=== PATIENT | female | born 1990 | race Caucasian/White ===

== ENCOUNTER 2017-03-14 15:27 | Outpatient (CLI) | payer MEDICAID, OTHER ==
[~2017-03-14] VITALS: Ht 170.2 cm; Wt 94.3 kg
[~2017-03-14 15:27] MED LIST: FERR27TA PO; IBUP800T25 PO; PREN1TAB49 PO
[2017-03-14 16:05] VITALS: BP 114/57; PULSE 117; RESP 20; Ht 170.2 cm; Wt 94.3 kg
[2017-03-14 16:17] LABS: ADD UMIC YES; UR BILIRUBIN (Dip) NEGATIVE (NEGATIVE); UR BLOOD (Dip) TRACE (NEGATIVE); UR CLARITY CLEAR (CLEAR); UR COLOR LT. YELLOW (YELLOW); UR GLUCOSE (Dip) NEGATIVE (NEGATIVE); UR KETONES (Dip) NEGATIVE (NEGATIVE); UR LEUKOCYTE ESTERASE (Dip) NEGATIVE (NEGATIVE); UR NITRITE (Dip) NEGATIVE (NEGATIVE); UR TOTAL PROTEIN (Dip) NEGATIVE (NEGATIVE); UR UROBILINOGEN (Dip) 2.0 E.U./dL (0.1-1.0)
[2017-03-14 16:26] LABS: UR SQUAMOUS EPITHELIAL CELL FEW; URINE RBCS 0-2 /HPF (0)
[2017-03-14] MEDS: TERBUTALINE 1 MG/ML INJ SC ONE ×2 (16:53→18:09)
--- NOTE | 2017-03-14 16:53 | RADRPT ---
PROCEDURE: Obstetrical ultrasound CLINICAL INDICATION: Labor TECHNIQUE: Multiple sonographic images of the pelvis were obtained. The images were reviewed on a PACS workstation. COMPARISON: Obstetrical ultrasound from 03/19/2016 FINDINGS: The cervix is not well visualized. There is a single viable intrauterine gestation. Cardiac activity is present with 141 beats per minute. There is a breech presentation. The placenta is posterior and fundal in location. There is no evidence for an abruption or placenta previa. There is a subjectively normal amount of amniotic fluid. Measurements were made in order to determine age. The results are as follows (cm): BPD =6.59 HC =24.93 AC =22.55 FL =4.83 Estimated gestational age by ultrasound of approximately 26 weeks, 5 days. The estimated date of delivery by ultrasound is 06/15/2017. Estimated gestational age by LMP of approximately 26 weeks, 6 days. The estimated date of delivery by LMP is 06/14/2017. EFW = 969 grams (30th percentile) IMPRESSION: Single viable intrauterine gestation of approximately 26 weeks, 5 days . The estimated date of delivery is 06/15/2017 . Dating by ultrasound is within 1 day of dating by LMP. Breech presentation. Estimated weight is in the 30th percentile. RPTAT: EE Physician Abi Date Time Electronically viewed and signed by Physician Abi on 03/14/2017 16:52 /
[2017-03-14] MEDS: LACTATED RINGER'S 1,000 ML IV SCH ×2 (16:54→18:10)
--- NOTE | 2017-03-14 16:56 | RADRPT ---
PROCEDURE: US OB biophysical profile. CLINICAL INDICATION: evaluation, fever, contractions TECHNIQUE: Multiple sonographic images of the pelvis were obtained. The images were reviewed on a PACS workstation. COMPARISON: None FINDINGS: The cervix is closed and measures 4.5 cm in length. There is a single viable intrauterine gestation. Cardiac activity is present with 152 beats per min sycuan. There is a breech presentation. The placenta is posterior and fundal. There is no evidence of placental abruption. There is a normal amount of amniotic fluid with an GUSTAVO = 10.5 cm. Biophysical profile: movement 2/2 tone 2/2. breathing 2/2 GUSTAVO 2/2 Total 05/07 RPTAT: AA . IMPRESSION: Normal biophysical profile. Normal GUSTAVO of 10.5 cm. The cervix is closed and measures 4.5 cm in length. Physician Abi Date Time Electronically viewed and signed by Physician Abi on 03/14/2017 16:55 /
[2017-03-14] MEDS ORDERED: CALC600T11 PO (17:07)
[2017-03-14] MEDS ORDERED: FOLI0.8C PO (17:08)
[2017-03-14 17:09] LABS: ADD SCAN DIFF NO
[2017-03-14 17:12] LABS: BASOPHILS % 0.2 % (0.0-2.0); HEMATOCRIT 36.3 % (37.0-47.0); HEMOGLOBIN 12.5 g/dl (12.0-16.0); LYMPHOCYTES # 0.9 10^3/ul (0.8-2.9); LYMPHOCYTES % 7.9 % (15.0-51.0); MEAN CORPUSCULAR HEMOGLOBIN 30.8 pg (29.0-33.0); MEAN CORPUSCULAR HGB CONC 34.4 g/dl (32.0-37.0); MEAN CORPUSCULAR VOLUME 89.4 fl (82.0-101.0); MEAN PLATELET VOLUME 11.3 fl (7.4-10.4); MONOCYTE # 0.7 10^3/ul (0.3-0.9); MONOCYTES % 6.7 % (0.0-11.0); NEUTROPHIL # 9.3 10^3/ul (1.6-7.5); NEUTROPHILS % 84.3 % (39.0-77.0); PLATELET COUNT 186 10^3/UL (140-415); RED BLOOD COUNT 4.06 10^6/ul (4.20-5.40); RED CELL DISTRIBUTION WIDTH 13.7 % (11.5-14.5)
--- NOTE | 2017-03-14 18:24 | PN ---
Triage Information Date/Time Weeks of Gestation 4 para 3 at 26+6 weeks of gestation who presents with contractions and flulike symptoms including cough Patient reports having fever at home although afebrile while here : 4 Para: 3 Diabetes: none Hypertention: none Objective Vital Signs Date Time Temp Pulse Resp B/P Pulse Ox O2 Delivery O2 Flow Rate FiO2 03/14/17 16:05 98.4 117 20 114/57 97 Room Air Heart Rate: 140's Heart Rate Comments Reactive Contractions: None Results/Medications Result Diagram: 03/14/17 1650 Results 24 hrs Laboratory Tests Test 03/14/17 16:00 03/14/17 16:50 Urine Color LT. YELLOW Urine Clarity CLEAR Urine pH 7.0 Urine Specific [place] <=1.005 L Urine Ketones NEGATIVE Urine Nitrite NEGATIVE Urine Bilirubin NEGATIVE Urine Urobilinogen 2.0 E.U./dL H Urine Leukocyte Esterase NEGATIVE Urine Microscopic RBC 0-2 Urine Microscopic WBC 0-2 Urine Squamous Epithelial Cells FEW Urine Hemoglobin TRACE Urine Glucose NEGATIVE Urine Total Protein NEGATIVE Fibronectin NEGATIVE White Blood Count 11.0 #H Red Blood Count 4.06 L Hemoglobin 12.5 Hematocrit 36.3 L Mean Corpuscular Volume 89.4 Mean Corpuscular Hemoglobin 30.8 Mean Corpuscular Hemoglobin Concent 34.4 Red Cell Distribution Width 13.7 Platelet Count 186 Mean Platelet Volume 11.3 H Neutrophils % 84.3 H Lymphocytes % 7.9 L Monocytes % 6.7 Eosinophils % 0.0 Basophils % 0.2 Nucleated Red Blood Cells % 0.0 Neutrophils # 9.3 H Lymphocytes # 0.9 Monocytes # 0.7 Eosinophils # 0.0 Basophils # 0.0 Nucleated Red Blood Cells # 0.0 Medications Current Medications Lactated Ringer's (Lr) 1,000 ml @ 125 mls/hr Q8H IV Last administered on t 18:10; Admin Dose 125 MLS/HR; Start 03/14/17 at 16:01 Imaging Results PROCEDURE: US OB biophysical profile. CLINICAL INDICATION: evaluation, fever, contractions TECHNIQUE: Multiple sonographic images of the pelvis were obtained. The images were reviewed on a PACS workstation. COMPARISON: None FINDINGS: The cervix is closed and measures 4.5 cm in length. There is a single viable intrauterine gestation. Cardiac activity is present with 152 beats per minute. There is a breech presentation. The placenta is posterior and fundal. There is no evidence of placental abruption. There is a normal amount of amniotic fluid with an GUSTAVO = 10.5 cm. Biophysical profile: movement 2/2 tone 2/2. breathing 2/2 GUSTAVO 2/2 Total 05/07 RPTAT: AA . IMPRESSION: Normal biophysical profile. Normal GUSTAVO of 10.5 cm. The cervix is closed and measures 4.5 cm in length. Tony Estevez Physician Date Time Electronically viewed and signed by Tony Estevez Physician on 03/14/2017 16:55 RA/ CC: NOAM HUGHES MD PROCEDURE: Obstetrical ultrasound CLINICAL INDICATION: Labor TECHNIQUE: Multiple sonographic images of the pelvis were obtained. The images were reviewed on a PACS workstation. COMPARISON: Obstetrical ultrasound from 03/19/2016 FINDINGS: The cervix is not well visualized. There is a single viable intrauterine gestation. Cardiac activity is present with 141 beats per minute. There is a breech presentation. The placenta is posterior and fundal in location. There is no evidence for an abruption or placenta previa. There is a subjectively normal amount of amniotic fluid. Measurements were made in order to determine age. The results are as follows (cm): BPD = 6.59 HC = 24.93 AC = 22.55 FL = 4.83 Estimated gestational age by ultrasound of approximately 26 weeks, 5 days. The estimated date of delivery by ultrasound is 06/15/2017. Estimated gestational age by LMP of approximately 26 weeks, 6 days. The estimated date of delivery by LMP is 06/14/2017. EFW = 969 grams (30th percentile) IMPRESSION: Single viable intrauterine gestation of approximately 26 weeks, 5 days . The estimated date of delivery is 06/15/2017 . Dating by ultrasound is within 1 day of dating by LMP. Breech presentation. Estimated weight is in the 30th percentile. 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
--- NOTE | 2017-03-14 21:10 | PN ---
Triage Information Date/Time 03/14/2040 Weeks of Gestation 26w6d : 4 Para: 3 Diabetes: none Additional information c/o uterine contractions q 10min, fever but never took temp , dry cough with general bodyache for 2days Objective EFM no significant uterine activities max temp 99.3 but maternal tachycardia with transient tahycardia 170's down to 160's WBC 11578 CVL 4.5 EFW 969gm breech U/A neg FFNneg CVA neg for tenderness Vital Signs Date Time Temp Pulse Resp B/P Pulse Ox O2 Delivery O2 Flow Rate FiO2 03/14/17 16:05 98.4 117 20 114/57 97 Room Air Heart Rate Comments 160's Exam earier show some u.c terbutaline x1 given resolved Results/Medications Result Diagram: 03/14/17 1650 Results 24 hrs Laboratory Tests Test 03/14/17 16:00 03/14/17 16:50 Urine Color LT. YELLOW Urine Clarity CLEAR Urine pH 7.0 Urine Specific [place] <=1.005 L Urine Ketones NEGATIVE Urine Nitrite NEGATIVE Urine Bilirubin NEGATIVE Urine Urobilinogen 2.0 E.U./dL H Urine Leukocyte Esterase NEGATIVE Urine Microscopic RBC 0-2 Urine Microscopic WBC 0-2 Urine Squamous Epithelial Cells FEW Urine Hemoglobin TRACE Urine Glucose NEGATIVE Urine Total Protein NEGATIVE Fibronectin NEGATIVE White Blood Count 11.0 #H Red Blood Count 4.06 L Hemoglobin 12.5 Hematocrit 36.3 L Mean Corpuscular Volume 89.4 Mean Corpuscular Hemoglobin 30.8 Mean Corpuscular Hemoglobin Concent 34.4 Red Cell Distribution Width 13.7 Platelet Count 186 Mean Platelet Volume 11.3 H Neutrophils % 84.3 H Lymphocytes % 7.9 L Monocytes % 6.7 Eosinophils % 0.0 Basophils % 0.2 Nucleated Red Blood Cells % 0.0 Neutrophils # 9.3 H Lymphocytes # 0.9 Monocytes # 0.7 Eosinophils # 0.0 Basophils # 0.0 Nucleated Red Blood Cells # 0.0 Medications Current Medications Lactated Ringer's (Lr) 1,000 ml @ 125 mls/hr Q8H IV Last administered on t 18:10; Admin Dose 125 MLS/HR; Start 03/14/17 at 16:01 Assessment/Plan cannot exclude flu syndrome to ER for evaluation and management SHANNAN CHEN MD Mar 14, 2017 21:05
--- NOTE | 2017-03-14 22:00 | TRIAGE ---
OB Triage Datetime Report Generated by CPN: 03/14/2017 22:00 Datetime: 03/14/2017 20:38 Stage of : OB Triage Labor Evaluation Frequency: 0 Monitor Mode: External Resting Tone [place]: Relaxed Heart Rate FHR Baseline Rate: 160 Monitor Mode: External US Variability: Moderate 6-25 bpm Accelerations: 15X15 Decelerations: None Category: Category I Pain Assessment Pain Scale: 4 Pain Presence: Intermittent Pain Type: Cramping Pain Location: Back Pain Goal: 2 Pain Relief Measures: Comfort Measures Datetime: 03/14/2017 20:00 Stage of : OB Triage Temperature Route: Oral Labor Evaluation Frequency: OCCASS Monitor Mode: External Duration (sec)2399: 30-50 Quality: Mild Pattern: Normal: <= 5 Contractions in 10 Minutes Resting Tone [place]: Relaxed Heart Rate FHR Baseline Rate: 170 Monitor Mode: External US FHR Baseline Changes: Tachycardia Variability: Moderate 6-25 bpm Accelerations: 15X15 Decelerations: None Pain Assessment Pain Scale: 4 Pain Presence: Intermittent Pain Type: Cramping Pain Location: Back Pain Goal: 2 Pain Relief Measures: Comfort Measures Datetime: 03/14/2017 19:02 Labor Evaluation Frequency: x2 Monitor Mode: External Duration (sec)2399: 30-50 Quality: Mild Pattern: Normal: <= 5 Contractions in 10 Minutes Resting Tone [place]: Relaxed Pain Assessment Pain Scale: 4 Pain Presence: Intermittent Pain Type: Cramping Pain Location: Back Pain Goal: 2 Pain Relief Measures: Comfort Measures Pain Assessment Comments: pt reports uc's are the same Datetime: 03/14/2017 18:10 Labor Evaluation Frequency: X3 Monitor Mode: External Duration (sec)2399: 40-60 Quality: Mild Pattern: Normal: <= 5 Contractions in 10 Minutes Resting Tone [place]: Relaxed Datetime: 03/14/2017 17:21 Comments: u/s taken off to accurately monitor contractions Datetime: 03/14/2017 16:53 Labor Evaluation Frequency: X1 Monitor Mode: External Duration (sec)2399: 40 Quality: Mild Pattern: Normal: <= 5 Contractions in 10 Minutes Resting Tone [place]: Relaxed Contraction Comments: PT REPORTS DECREASED UC'S Heart Rate FHR Baseline Rate: 145 Monitor Mode: External US Variability: Moderate 6-25 bpm Accelerations: 10X10 Decelerations: None Category: Category I Datetime: 03/14/2017 16:52 Comments: NST REACTIVE FOR GESTATIONAL AGE Datetime: 03/14/2017 15:39 Stage of : OB Triage Maternal Assessment Level of Consciousness: Fully Conscious DTR's/Clonus: DTRs 2+; No Clonus Headache: Denies Blurred Vision: No Respiratory Effort: Unlabored; Regular Rhythm; Equal Expansion Breath Sounds, Left: Clear and Equal Breath Sounds, Right: Clear and Equal Nausea/Vomiting: Denies RUQ Epigastric Pain: Denies Lower Extremities Edema: None Degree: None Upper Extremities Edema: None Degree: None Facial Edema: None Temperature Route: Axillary Fall Risk Assessment History of Falling: (0) No Secondary Diagnosis: (0) No Ambulatory Aid: (0) Bedrest/Nurse Assist IV Therapy: (0) No Gait: (0) Normal/Bedrest/Immobile Mental Status: (0) Oriented to Own Ability Fall Score: 0 Fall Risk Score Definition: No Risk: No action required Datetime: 03/14/2017 15:38 EGA: 26.6 Datetime: 03/14/2017 15:37 Time of Arrival: 03/14/2017 15:20 Arrived By: Ambulatory Arrived From: Home Chief Complaint: fever/ uc's Movement: Present Contractions: Irregular Time Contractions Began: 03/13/2017 06:00 Contractions: q10min per pt Rupture of Membranes: Denies Vaginal Bleeding: None Vaginal Discharge: Denies Recent Sexual Intercouse: Denies Abdominal Trauma: Not Applicable Patient Complaints: Headache; Fever Additional Patient Complaints: BEY upon standing and when cough Time Provider Notified: 03/14/2017 16:00 Provider Notified: DANA Initial Plan: [email or web address] call
[2017-03-14] MEDS ORDERED: ACET325T33 PO (23:05)
[2017-03-14] MEDS ORDERED: GUAI-637 PO (23:06)
== END 2017-03-14 21:00 | disposition home or self-care (01) ==
LOC: OBT 15:27 → L-D 15:28 → OBT 21:00
PROVIDERS: ATTEND Obstetrics & Gynecology
DX: O62.9 Abnormality of forces of labor, unspecified (principal); O26.892 Other specified pregnancy related conditions, second trimester; R52 Pain, unspecified; Z3A.26 26 weeks gestation of pregnancy
CPT/HCPCS: 36415; 76815; 76817; 76818; 81001; 82731; 85025; 96360; 96361; 96372; J3105; J7120; Z7500; G0463

== ENCOUNTER 2017-03-14 21:05 | Emergency (ER) | payer OTHER ==
[~2017-03-14] VITALS: Ht 162.6 cm; Wt 95.5 kg
[~2017-03-14 21:05] MED LIST changes: +CALC600T11 PO; +FOLI0.8C PO
[2017-03-14 21:11] VITALS: Ht 162.6 cm; Wt 95.5 kg
--- NOTE | 2017-03-14 22:40 | PN ---
Triage Information Date/Time 03/14/17 Weeks of Gestation 26w6d : 5 Para: 3 Diabetes: none Hypertention: none Additional information c/o uc's q10min fever and nonproductive cough and generalbodyache for thew last 2days didn't take temperature headahe Objective tarchycardic 120's maternal max temp 99.3 WBC 67617 tachycardia transient 170's down to 160"s u/a neg EFM no uterine activities at present but earier detected and resolved after x1 terbutaline FNN neg Vital Signs Date Time Temp Pulse Resp B/P Pulse Ox O2 Delivery O2 Flow Rate FiO2 03/14/17 21:11 100.9 126 18 118/62 98 Contractions: None Exam CVA neg for tenderness Results/Medications Imaging Results cvl 4.5 GUSTAVO 10.5 EFW 969gm breech Assessment/Plan IUP 26w6d cannot exclude flu syndrome to ER for futher evaluation and management SHANNAN CHEN MD Mar 14, 2017 22:35
--- NOTE | 2017-03-14 23:03 | ERD ---
ER Documentation Chief Complaint Date/Time DATE: 03/14/17 TIME: 22:56 Chief Complaint fever, 26 weeks ,cleared by OB HPI This 26-year-old female presents to emergency department for complaints of fever , nonproductive cough and body aches and headache. She reports that she is able to tolerate fluids but has decreased appetite, date symptoms started yesterday. Denies dysuria, diarrhea, vomiting, or shortness of breath.. Patient has not taken her temperature at home, has not tried [id number] Tylenol. Reports she is having contractions. Patient is 27 weeks tomorrow. She was cleared from OB, chart reviewed documents that she is 26 weeks 6 day, 5, para 3. Objective data tachycardia 120s maternal max temperature 99.3 WBCs 62824, tachycardia transient 107 days down to 160 UA negative, EFM no uterine activity at present but earlier detected and resolved after 1 terbutaline, FNN negative ROS All systems reviewed and are negative except as per history of present illness. Medications Home Meds Active Scripts Guaifenesin* (Robitussin*) 100 Mg/5 Ml Syrup, 200 MG PO Q4H Y for COUGH for 7 Days, #120 ML Prov:ROGELIO,KIRSTEN 03/14/17 Acetaminophen* (Tylenol*) 325 Mg Tablet, 2 TAB PO Q6 Y for PAIN AND OR ELEVATED TEMP, #20 TAB Prov:ROGELIO,KIRSTEN 03/14/17 Reported Medications Folic Acid (Folic Acid) 0.8 Mg Capsule, 0.8 MG PO, CAP 03/14/17 Calcium Carbonate* (Calcium Carbonate*) 600 MG Ca Tab, 600 MG PO, TAB 03/14/17 Vits W-Ca,Fe,Fa(<1MG) () 1 Tab Tablet, 1 TAB PO DAILY 04/11/12 Ferrous Sulfate (Iron) 1 Tab Tablet, 1 TAB PO DAILY 04/11/12 Discontinued Scripts Ibuprofen* (Ibuprofen*) 800 Mg Tablet, 800 MG PO Q6, #20 TAB 0 Refills Prov:NOAM HUGHES MD 03/29/16 Allergies Allergies: Coded Allergies: No Known Allergies (Verified Allergy, Unknown, 03/14/17) PMhx/Soc History of Surgery: No Anesthesia Reaction: No Hx Neurological Disorder: No Hx Respiratory Disorders: No Hx Cardiac Disorders: No Hx Psychiatric Problems: No Hx Miscellaneous Medical Probl: No Hx Alcohol Use: No Hx Substance Use: No Hx Tobacco Use: No Physical Exam Vitals Vital Signs Date Time Temp Pulse Resp B/P Pulse Ox O2 Delivery O2 Flow Rate FiO2 03/14/17 23:54 97.2 03/14/17 21:11 100.9 126 18 118/62 98 Vitals stable, triage triage note refused Physical Exam Const: No acute Head: Atraumatic Eyes: Normal Conjunctiva ENT: Bilateral tympanic membranes translucent, auditory canals clear, nasal mucosa with white mucus, turbinate edema +2, pharynx pink, tongue midline, uvula rises and falls with pronation Neck: Full range of motion..~ No meningismus. Resp: Chest clear to auscultation no rales wheezes or rhonchi Cardio: Regular rate and rhythm, no murmurs Abd: 's abdomen Skin: Back: Ext: Neur: Awake and alert Psych: Normal Mood and Affect Results 24 hrs Current Medications Medications (Trade) Dose Ordered Sig/Kory Route PRN Reason Start Time Stop Time Status Last Admin Dose Admin Acetaminophen (Tylenol Tab) 650 mg ONCE ONCE PO 03/14/17 23:30 03/14/17 23:31 DC 03/14/17 23:13 Procedures/MDM This pleasant 26-year-old female presents to emergency department for flulike symptoms, cough nonproductive, tactile fever, headache, decreased appetite, 1 day patient is 26 weeks and 6 days. Cleared by OB prior to visit. Documentation of normal urinalysis. Urine patient reports that she was having contractions earlier, documentation that no uterine activity at present, but earlier detected and resolved after 1 terbutaline. Pneumonia, strep pharyngitis, labor unlikely. Patient treated with Tylenol, will be discharged home with Tylenol and Robitussin for symptomatic treatment, increase fluid, increase rest return to emergency department for worsening of symptoms, fever not responding to treatment. Nausea vomiting vaginal bleeding abdominal pain. I feel the patient is stable for discharge at this time with outpatient management and follow-up with primary care physician. I have discussed results , examination findings, the treatment plan with the patient and family present prior to discharge. Indications for emergent reevaluation, side effects of medication were also discussed. All questions were answered. Patient verbalizes understanding and agrees with plan of care. Departure Diagnosis: Primary Impression: URI, acute Condition: Good Patient Instructions: Adult Self-Care for Colds Additional Instructions: Thank you for for coming to [facility] for your care today. Please ask your nurse or provider if you have questions about your care today and do not leave until all your questions have been answered. Please use any medications given as directed and follow-up with your doctor (or the doctor you were referred to) in the next 2-3 days. If you do not have a primary care doctor you may follow up at the [facility] (listed below). You may also use motrin and tylenol as needed for fever and/or pain unless instructed otherwise by your provider or nurse. Indications for more urgent follow-up have been discussed, but you may return to the Emergency Department at ANY time for any worrisome or worsening symptoms. If you have abdominal pain, please know that no test or exam you received is perfect and you should follow up within 8 hours for continued pain. If you had any imaging studies today, such as an X-Ray or CT Scan, these studies will be reviewed later by a radiologist. You will be called if there are important findings that were not identified today, so make sure the contact information you provided at registration is correct. If you received any narcotic pain control medicine today, such as Vicodin, Morphine or Dilaudid, your coordination and judgment may be affected for a number of hours. Please do not drive or operate heavy machinery, and you may want someone to assist you at home. If you were given a prescription for narcotic medication, be aware that it is very addictive- use sparingly and only if necessary. KIRSTEN MERCADO Mar 14, 2017 23:03
[2017-03-14] MEDS ORDERED: ACET325T33 PO (23:05)
[2017-03-14] MEDS ORDERED: GUAI-637 PO (23:06)
[2017-03-14] MEDS ORDERED: ACETAMINOPHEN 325 MG TAB PO ONE (23:30)
[2017-03-14 23:54] VITALS: TEMP 97.2
== END 2017-03-14 23:54 | disposition home or self-care (01) ==
LOC: FTE 21:05
DX: O23.42 Unspecified infection of urinary tract in pregnancy, second trimester (principal); Z3A.26 26 weeks gestation of pregnancy
CPT/HCPCS: 99283

== ENCOUNTER 2017-03-15 17:08 | Inpatient (IN) | payer OTHER ==
[~2017-03-15] VITALS: Ht 170.2 cm; Wt 91.0 kg
[~2017-03-15 17:08] MED LIST changes: +ACET325T33 PO; +GUAI-637 PO; -IBUP800T25 PO
[2017-03-15] MEDS ORDERED: AMPICILLIN 2 GM/NS (PMX) 100 ML ONE (17:50)
[2017-03-15] MEDS ORDERED: GENTAMICIN 120 MG/NS (PMX) 100 ML IVPB ONE (18:00)
[2017-03-15] MEDS ORDERED: ACETAMINOPHEN 325 MG TAB PO ONE (18:00)
[2017-03-15] MEDS ORDERED: AMPICILLIN 2 GM IM ONE (18:00)
[2017-03-15] MEDS ORDERED: LACTATED RINGER'S 1,000 ML IV ONE (18:00)
[2017-03-15 18:09] LABS: ADD SCAN DIFF NO
[2017-03-15 18:11] VITALS: Ht 170.2 cm; Wt 91.0 kg
[2017-03-15 18:12] LABS: BASOPHILS % 0.1 % (0.0-2.0); HEMATOCRIT 33.6 % (37.0-47.0); HEMOGLOBIN 11.9 g/dl (12.0-16.0); LYMPHOCYTES # 0.6 10^3/ul (0.8-2.9); LYMPHOCYTES % 4.2 % (15.0-51.0); MEAN CORPUSCULAR HEMOGLOBIN 31.7 pg (29.0-33.0); MEAN CORPUSCULAR HGB CONC 35.4 g/dl (32.0-37.0); MEAN CORPUSCULAR VOLUME 89.6 fl (82.0-101.0); MEAN PLATELET VOLUME 11.5 fl (7.4-10.4); MONOCYTE # 1.2 10^3/ul (0.3-0.9); MONOCYTES % 7.8 % (0.0-11.0); NEUTROPHIL # 13.3 10^3/ul (1.6-7.5); NEUTROPHILS % 86.7 % (39.0-77.0); PLATELET COUNT 181 10^3/UL (140-415); RED BLOOD COUNT 3.75 10^6/ul (4.20-5.40); RED CELL DISTRIBUTION WIDTH 13.9 % (11.5-14.5); WHITE BLOOD COUNT 15.3 10^3/ul (4.8-10.8)
[2017-03-15] MEDS: AMPICILLIN 2 GM/NS (PMX) 100 ML IVPB SCH ×2 (18:14→23:39)
[2017-03-15 18:19] LABS: ADD UMIC NO; UR BILIRUBIN (Dip) NEGATIVE (NEGATIVE); UR BLOOD (Dip) NEGATIVE (NEGATIVE); UR CLARITY CLEAR (CLEAR); UR COLOR LT. YELLOW (YELLOW); UR GLUCOSE (Dip) NEGATIVE (NEGATIVE); UR KETONES (Dip) NEGATIVE (NEGATIVE); UR LEUKOCYTE ESTERASE (Dip) NEGATIVE (NEGATIVE); UR NITRITE (Dip) NEGATIVE (NEGATIVE); UR TOTAL PROTEIN (Dip) NEGATIVE (NEGATIVE); UR UROBILINOGEN (Dip) >8.0 E.U./dL (0.1-1.0)
--- NOTE | 2017-03-15 18:23 | HP ---
Date/Time of Note Date/Time of Note DATE: 03/15/17 TIME: 18:15 OB - History Hx of Present Free Text/Dictation admitted C/O high fever body ache and back ache X 2 days has urinary ferquecy x 2 days ; denies dysuria also C/O cough x 2 days Estimated Due Date: Jun 16, 2017 : 4 Para: 3 Care: Good Care Obstetrical Complications: None Medical Complications: None Past Family/Social History * Past Medical, Surgical, Family and Obstetric Histories reviewed from chart. OB Admission Exam Physical Exam HEENT: WNL Heart: Rhythm Normal Lungs: Clear, Equal Abdomen: WNL Extremities: Normal Reflexes: Normal Cervical Dilatation: None Effacement: 0% Station: -3 Membranes: Intact Contractions on Admission: None OB Assessment/Plan Other Assessment: 27 weeks gestation' fever possible URI vs influenza and or UTI; doubt pneumonia Other plan: start on IV ABs after obtaining cultures May start on influenza treatment as well NOAM HUGHES MD Mar 15, 2017 18:23
[2017-03-15 18:43] VITALS: BP 105/59; PULSE 131; RESP 18
[2017-03-15] MEDS: OSELTAMIVIR 75 MG CAP PO SCH (21:12)
--- NOTE | 2017-03-15 21:17 | RADRPT ---
PROCEDURE: XR Chest. CLINICAL INDICATION: Flu symptoms TECHNIQUE: AP Portable chest. COMPARISON: None available FINDINGS: The soft tissues and bones are normal. No focal infiltrates, masses, or effusions are noted. The m ediastinum and heart are normal. No pneumothorax is present. IMPRESSION: 1. No radiographic evidence for acute cardiopulmonary disease RPTAT: [facility] .Audrey Bernal MD, MD Date Time Electronically viewed and signed by .Audrey Bernal MD, on 03/15/2017 21:17 .C/
[2017-03-15] MEDS: ACETAMINOPHEN 325 MG TAB PO PRN (23:03)
--- NOTE | 2017-03-16 01:22 | TRIAGE ---
OB Triage Datetime Report Generated by CPN: 03/16/2017 01:22 Datetime: 03/16/2017 00:10 Temperature Route: Rectal (Annotations: RECTAL PROBE) Datetime: 03/16/2017 00:00 Labor Evaluation Frequency: 0 Monitor Mode: External Heart Rate FHR Baseline Rate: 150 Monitor Mode: External US FHR Baseline Changes: No Baseline Change Variability: Moderate 6-25 bpm Accelerations: 15X15 Decelerations: None Category: Category I Datetime: 03/15/2017 23:41 Temperature Route: Rectal (Annotations: RECTAL PROBE IN PLACE FOR COOLING BLANKET) Datetime: 03/15/2017 23:33 Temperature Route: Rectal (Annotations: RECTAL PROBE IN PLACE FOR COOLING BLANKET) Datetime: 03/15/2017 23:03 Stage of : Antepartum Temperature Route: Rectal (Annotations: COOLING BLANKET RECTAL PROBE) Datetime: 03/15/2017 23:00 Labor Evaluation Frequency: 0 Monitor Mode: External Heart Rate FHR Baseline Rate: 160 Monitor Mode: External US FHR Baseline Changes: No Baseline Change Variability: Moderate 6-25 bpm Accelerations: 15X15 Decelerations: None Category: Category I Datetime: 03/15/2017 22:25 Monitor Mode: External Quality: Mild Heart Rate FHR Baseline Rate: 150 Monitor Mode: External US FHR Baseline Changes: No Baseline Change Variability: Moderate 6-25 bpm Accelerations: 15X15 Decelerations: None Category: Category I Datetime: 03/15/2017 21:46 Time of Arrival: 03/15/2017 21:30 EGA: 27.0 Arrived By: Stretcher Arrived From: Other Unit in Hospital Datetime: 03/15/2017 21:40 Stage of : Antepartum Assessment Type: Admission Assessment Vaginal Bleeding: None Maternal Assessment Level of Consciousness: Fully Conscious Blurred Vision: No Respiratory Effort: Unlabored; Regular Rhythm; Equal Expansion Breath Sounds, Left: Clear and Equal Breath Sounds, Right: Clear and Equal Nausea/Vomiting: Denies RUQ Epigastric Pain: Denies Lower Extremities Edema: None Upper Extremities Edema: None Facial Edema: None Fall Risk Assessment History of Falling: (0) No Secondary Diagnosis: (0) No Ambulatory Aid: (0) Bedrest/Nurse Assist IV Therapy: (20) Yes Gait: (0) Normal/Bedrest/Immobile Mental Status: (0) Oriented to Own Ability Fall Score: 20 Fall Risk Score Definition: No Risk: No action required Labor Evaluation Frequency: DENIES Pain Presence: Constant Pain Type: Ache Pain Location: Head Membrane Status: Intact Datetime: 03/15/2017 21:20 Stage of : Antepartum Datetime: 03/15/2017 20:04 Comments: Pt back to bed from radiology. Datetime: 03/15/2017 19:10 Temperature Route: Oral Datetime: 03/15/2017 19:00 Labor Evaluation Frequency: OCC Monitor Mode: External Resting Tone Feather Sound: Relaxed Heart Rate FHR Baseline Rate: 160 Monitor Mode: External US FHR Baseline Changes: No Baseline Change Variability: Moderate 6-25 bpm Accelerations: 15X15 Decelerations: None Category: Category I Pain Assessment Pain Scale: 8 Pain Presence: Intermittent Pain Type: Contraction; Ache Pain Location: Back Pain Goal: 0 Pain Relief Measures: Comfort Measures Datetime: 03/15/2017 18:48 Vaginal Exam Dilatation (cms): 0.0 Effacement (%): 0 Station: -3 Exam By: Deena RN Datetime: 03/15/2017 18:30 Monitor Mode: External Resting Tone Feather Sound: Relaxed Heart Rate FHR Baseline Rate: 165 Monitor Mode: External US FHR Baseline Changes: No Baseline Change Variability: Moderate 6-25 bpm Accelerations: 15X15 Decelerations: None Category: Category I Datetime: 03/15/2017 18:00 Monitor Mode: External Resting Tone Feather Sound: Relaxed Heart Rate FHR Baseline Rate: 180 Monitor Mode: External US FHR Baseline Changes: Tachycardia Variability: Moderate 6-25 bpm Accelerations: 15X15 Decelerations: None Category: Category II Pain Assessment Pain Scale: 8 Pain Presence: Intermittent Pain Type: Contraction; Ache Pain Location: Abdomen; Back Pain Goal: 2 Pain Relief Measures: Comfort Measures Datetime: 03/15/2017 17:23 Stage of : OB Triage Datetime: 03/15/2017 17:15 Assessment Type: Triage Maternal Assessment Level of Consciousness: Fully Conscious DTR's/Clonus: DTRs 2+; No Clonus Headache: Denies Blurred Vision: No Respiratory Effort: Unlabored; Regular Rhythm; Equal Expansion Breath Sounds, Left: Clear and Equal Breath Sounds, Right: Clear and Equal Nausea/Vomiting: Denies RUQ Epigastric Pain: Denies Lower Extremities Edema: Bilateral Lower Extremities Degree: Trace Upper Extremities Edema: None Degree: None Facial Edema: None Fall Risk Assessment History of Falling: (0) No Secondary Diagnosis: (0) No Ambulatory Aid: (0) Bedrest/Nurse Assist IV Therapy: (0) No Gait: (0) Normal/Bedrest/Immobile Mental Status: (0) Oriented to Own Ability Fall Score: 0 Fall Risk Score Definition: No Risk: No action required Datetime: 03/14/2017 15:39 Fall Score: 0 Fall Risk Score Definition: No Risk: No action required Datetime: 03/14/2017 15:38 Time of Arrival: 03/15/2017 17:06 EGA: 27.0 Arrived By: Ambulatory Arrived From: Home Chief Complaint: Fever and body aches Movement: Present Contractions: Occasional Rupture of Membranes: Denies Vaginal Bleeding: Normal Show Vaginal Discharge: Denies Recent Sexual Intercouse: Denies Abdominal Trauma: Not Applicable Patient Complaints: Contractions; Back Pain; Fever; Cough Time Provider Notified: 03/15/2017 17:39 Provider Notified: Oscar Initial Plan: NST, UA, CBC, blood and urine culture, IV hydration, Tylenol 650mg PO x1 now, coolin g blanket, VE, Ampicillin 2gm IVPB q6h, Gentamycin 120mg IVPB x1 now and then Gentamycin 80mg q8h IV PB to follow, CXR posterior anterior with double abdominal shield, admit to 2NE after all these orde rs are done.
[2017-03-16] MEDS: LACTATED RINGER'S 1,000 ML IV SCH ×4 (01:52→21:48)
[2017-03-16] MEDS: GENTAMICIN 80 MG/NS (PMX) 50 ML IVPB SCH ×3 (01:52→17:26)
[2017-03-16] MEDS: ACETAMINOPHEN 325 MG TAB PO PRN ×4 (04:57→18:23)
[2017-03-16] MEDS: AMPICILLIN 2 GM/NS (PMX) 100 ML IVPB SCH ×3 (05:38→18:17)
[2017-03-16] MEDS: OSELTAMIVIR 75 MG CAP PO SCH ×2 (08:44→20:58)
[2017-03-16] MEDS: MULTIVIT/MIN/FOLATE/IRON/PREN TAB PO SCH (08:44)
[2017-03-16] MEDS: GUAIFENESIN/DM 5ML CUP PO PRN ×2 (14:51→20:58)
--- NOTE | 2017-03-16 20:46 | PN ---
Date/Time of Note Date/Time of Note DATE: 03/16/17 TIME: 19:04 Assessment/Plan VTE Prophylaxis VTE Prophylaxis Intervention: ambulation Lines/Catheters IV Catheter Type (from Nrsg): Peripheral IV Assessment/Plan Assessment/Plan possible pyelonephritis VS Influenza 27 weeks gestation + urine CX elevated WBC with L shift will continue IV ABs and repeat CBC next day Subjective 24 Hr Interval Summary Free Text/Dictation no more C/O fever C/O dry cough Constitutional: improved, no complaints Eyes: no complaints ENT: no complaints Respiratory: no complaints Cardiovascular: no complaints Gastrointestinal: no complaints Genitourinary: no complaints, other (patient ids ) Musculoskeletal: no complaints Skin: no complaints Neurologic: no complaints Endocrine: no complaints Lymphatic: no complaints Psychological: nl mood/affect, no complaints Immunologic: no complaints Exam/Review of Systems Vital Signs Vitals Vital Signs Date Time Temp Pulse Resp B/P Pulse Ox O2 Delivery O2 Flow Rate FiO2 03/15/17 18:43 103.0 131 18 105/59 97 Room Air Intake and Output 03/15/17 03/15/17 03/16/17 15:00 23:00 07:00 Intake Total 800 ml 550 ml Output Total 700 ml Balance 800 ml -150 ml Exam afebrile over 24 hours Constitutional: alert, oriented, well developed Psych: nl mood/affect, no complaints Head: atraumatic, normocephalic Eyes: EOMI, PERRL, nl conjunctiva, nl lids, nl sclera ENMT: nl external ears & nose, nl lips & teeth, nl nasal mucosa & septum Neck: non-tender, supple Respiratory: clear to auscultation, normal air movement Cardiovascular: nl pulses, regular rate and rhythm Gastrointestinal: nl liver, spleen, non-tender, other (27 weeks gestation ), soft Musculoskeletal: nl extremities to inspection, nl gait and stance Extremities: normal pulses Neurological: 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 [employer] CLERK II-XII intact, nl mental status, nl speech, nl strength Skin: nl turgor, No rash or lesions Lymph: nl lymph nodes Results Result Diagram: 03/15/17 2181 Medications Medications Current Medications Gentamicin Sulfate 50 ml @ 104 mls/hr Q8H IVPB Last administered on 03/16/17t 17:26; Admin Dose 104 MLS/HR; Start 03/16/17 at 02:00 Ampicillin (Ampicillin 2 Gm/ NS (Pmx)) 100 ml @ 100 mls/hr Q6 IVPB Last administered on 03/16/17 18:17; Admin Dose 100 MLS/HR; Start 03/15/17 at 18:00 Oseltamivir Phosphate 75 mg 75 mg BID PO Last administered on 03/16/17 08:44; Admin Dose 75 MG; Start 03/15/17 at 21:00; Stop 03/20/17 at 20:59 Lactated Ringer's (Lr) 1,000 ml @ 125 mls/hr Q8H IV Last administered on 13:32; Admin Dose 125 MLS/HR; Start 03/15/17 at 21:48 Prenat Multivit/ [place]/Iron/Folic Ac ( S) 1 tab DAILY PO Last administered on 03/16/17 08:44; Admin Dose 1 TAB; Start 03/16/17 at 09:00 Acetaminophen (Tylenol Tab) 650 mg Q4H PRN PO PAIN AND OR ELEVATED TEMP Last administered on 03/16/17 18:23; Admin Dose 650 MG; Start 03/15/17 at 22:00 Guaifenesin/ Dextromethorphan (Robitussin Dm Liquid Cup) 10 ml Q4H PRN PO COUGH Last administered on 03/16/17 14:51; Admin Dose 10 ML; Start 03/16/17 at 14:00 NOAM HUGHES MD Mar 16, 2017 19:07
[2017-03-17] MEDS: AMPICILLIN 2 GM/NS (PMX) 100 ML IVPB SCH ×4 (00:53→17:45)
[2017-03-17] MEDS: LACTATED RINGER'S 1,000 ML IV SCH ×2 (00:54→14:06)
[2017-03-17] MEDS: GENTAMICIN 80 MG/NS (PMX) 50 ML IVPB SCH ×3 (02:02→17:45)
[2017-03-17 07:27] LABS: ADD SCAN DIFF NO
[2017-03-17 07:32] LABS: BASOPHILS % 0.3 % (0.0-2.0); EOSINOPHILS % 0.3 % (0.0-7.0); HEMATOCRIT 33.2 % (37.0-47.0); HEMOGLOBIN 11.3 g/dl (12.0-16.0); LYMPHOCYTES # 1.4 10^3/ul (0.8-2.9); LYMPHOCYTES % 18.1 % (15.0-51.0); MEAN CORPUSCULAR VOLUME 91.2 fl (82.0-101.0); MEAN PLATELET VOLUME 11.3 fl (7.4-10.4); MONOCYTE # 0.6 10^3/ul (0.3-0.9); MONOCYTES % 7.6 % (0.0-11.0); NEUTROPHIL # 5.5 10^3/ul (1.6-7.5); NEUTROPHILS % 71.5 % (39.0-77.0); PLATELET COUNT 189 10^3/UL (140-415); RED BLOOD COUNT 3.64 10^6/ul (4.20-5.40); WHITE BLOOD COUNT 7.6 10^3/ul (4.8-10.8)
[2017-03-17] MEDS: GUAIFENESIN/DM 5ML CUP PO PRN (08:51)
[2017-03-17] MEDS: MULTIVIT/MIN/FOLATE/IRON/PREN TAB PO SCH (08:52)
[2017-03-17] MEDS: OSELTAMIVIR 75 MG CAP PO SCH (08:57)
--- NOTE | 2017-03-17 18:54 | DS ---
Date/Time of Note Date/Time of Note DATE: 03/17/17 TIME: 18:51 Obstetrical Discharge Record Final Diagnosis Final Diagnosis: not delivered Other Final Diagnosis possible Influenza and or pyelonephritis Complications Infection (possible pyelonephritis and or Influenza) Condition on Discharge Physical Assessment Voiding: Yes Bowel Movement: Yes Breast: Soft, non-tender, Filling Fundus: Other (gravid) Abdomen and Incision: soft gravid Episiotomy: NA Calf Tenderness: No Patient Condition: Good NOAM HUGHES MD Mar 17, 2017 18:54
--- NOTE | 2017-03-17 18:57 | DS ---
Date/Time of Note Date/Time of Note DATE: 03/17/17 TIME: 18:54 Discharge Summary Admission/Discharge Info Admit Date/Time Mar 15, 2017 at 18:20 Discharge Date/Time 03/17/2017 Final Diagnosis pyelonephritis oe influenza Patient Condition: Good Hx of Present Illness 26 y/o female admitted with high temperature and body ache and responded to antibiotics with significant improvement to her symptoms Hospital Course uncomplicated Home Meds Active Scripts Guaifenesin* (Robitussin*) 100 Mg/5 Ml Syrup, 200 MG PO Q4H Y for COUGH for 7 Days, #120 ML Prov:ROGELIO,KIRSTEN 03/14/17 Acetaminophen* (Tylenol*) 325 Mg Tablet, 2 TAB PO Q6 Y for PAIN AND OR ELEVATED TEMP, #20 TAB Prov:ROGELIO,KIRSTEN 03/14/17 Reported Medications Folic Acid (Folic Acid) 0.8 Mg Capsule, 0.8 MG PO, CAP 03/14/17 Calcium Carbonate* (Calcium Carbonate*) 600 MG Ca Tab, 600 MG PO, TAB 03/14/17 Vits W-Ca,Fe,Fa(<1MG) () 1 Tab Tablet, 1 TAB PO DAILY 04/11/12 Ferrous Sulfate (Iron) 1 Tab Tablet, 1 TAB PO DAILY 04/11/12 Discontinued Scripts Ibuprofen* (Ibuprofen*) 800 Mg Tablet, 800 MG PO Q6, #20 TAB 0 Refills Prov:NOAM HUGHES MD 03/29/16 Follow-up Plan 2-3 days Primary Care Provider Harrison Cordon MD Time spent on discharge: < 30 minutes Pending Labs Laboratory Tests Test 03/17/17 07:12 White Blood Count 7.610^3/ul (4.8-10.8) Red Blood Count 3.6410^6/ul (4.20-5.40) Hemoglobin 11.3g/dl (12.0-16.0) Hematocrit 33.2% (37.0-47.0) Mean Corpuscular Volume 91.2fl (82.0-101.0) Mean Corpuscular Hemoglobin 31.0pg (29.0-33.0) Mean Corpuscular Hemoglobin Concent 34.0g/dl (32.0-37.0) Red Cell Distribution Width 14.0% (11.5-14.5) Platelet Count 08659^3/UL (140-415) Mean Platelet Volume 11.3fl (7.4-10.4) Neutrophils % 71.5% (39.0-77.0) Lymphocytes % 18.1% (15.0-51.0) Monocytes % 7.6% (0.0-11.0) Eosinophils % 0.3% (0.0-7.0) Basophils % 0.3% (0.0-2.0) Nucleated Red Blood Cells % 0.0/100WBC (0.0-0.0) Neutrophils # 5.510^3/ul (1.6-7.5) Lymphocytes # 1.410^3/ul (0.8-2.9) Monocytes # 0.610^3/ul (0.3-0.9) Eosinophils # 0.010^3/ul (0.0-0.5) Basophils # 0.010^3/ul (0.0-0.1) Nucleated Red Blood Cells # 0.010^3/ul (0.0-0.0) NOAM HUGHES MD Mar 17, 2017 18:57
--- NOTE | 2017-03-17 18:59 | PD.PPDC ---
MANAGER DOCUMENT Discharge Instruction Provider Information Physician Information 26 y/o female admitted for pyelonephritis and had total improvement with her symptoms Diagnosis Final Diagnosis: pyelonephritis and or influenza Condition Patient Condition: Good Diet Diet: Resume Regular Diet Activity/Restrictions Activity: Normal Activity May Shower Follow-up Follow-up with Physician: 2, 3, Day/Days (in clinic) NOAM HUGHES MD Mar 17, 2017 18:59
== END 2017-03-17 20:18 | disposition home or self-care (01) | DRG 781 ==
LOC: OBT 17:08 → L-D 17:09 → OBT 18:20 → OBG 21:20
PROVIDERS: ADMIT Obstetrics & Gynecology; ATTEND Obstetrics & Gynecology
DX: O23.02 Infections of kidney in pregnancy, second trimester (principal); J11.1 Influenza due to unidentified influenza virus with other respiratory manifestations; Z3A.27 27 weeks gestation of pregnancy
CPT/HCPCS: 36415; 59025; 71010; 81003; 85025; 86850; 86885; 86900; 86901; 87040; 87086; 96360; G0463; J0290; J1580; J2790; J7120

== ENCOUNTER 2017-05-19 15:18 | Outpatient (CLI) | payer OTHER ==
--- NOTE | 2017-05-19 16:19 | RADRPT ---
PROCEDURE: Biophysical profile CLINICAL INDICATION: distress. labor. TECHNIQUE: Color and warren-scale ultrasound images of an intrauterine gestation were obtained. COMPARISON: March 14, 2017 FINDINGS: A single live intrauterine gestation is identified in cephalic position with an estimated hear t rate of 139 beats per minute. The placenta is located posteriorly and has a grade of 1. The cerv ix is obscured by head shadows. No evidence of abruption identified. GUSTAVO is 10.1 cm. movement 2/2. tone 2/2. breathing movement 2/2. Qualitative AFV 2/2 Total biophysical profile 05/07 IMPRESSION: 05/07 biophysical profile. RPTAT: AA .Panchito Nuñez MD, Date Time Electronically viewed and signed by .Panchito Nuñez MD, on 05/19/2017 16:19 .P/
--- NOTE | 2017-05-19 17:39 | PN ---
Triage Information Date/Time Reason for visit: Uterine contractions Weeks of Gestation 36+ /Para 4/3 Diabetes: none Hypertention: none Objective Heart Rate: 140's Contractions: >10 Minutes Apart Disposition: Discharge Assessment/Plan No cervical change BPP 05/07 Patient is discharged with labor precautions SARA HOANG M.D. May 19, 2017 17:39
--- NOTE | 2017-05-20 06:25 | TRIAGE ---
OB Triage Datetime Report Generated by CPN: 05/19/2017 17:50 Datetime: 05/19/2017 17:40 Stage of : OB Triage Maternal Assessment Level of Consciousness: Fully Conscious DTR's/Clonus: DTRs 1+ Headache: Denies Breath Sounds, Left: Clear and Equal Breath Sounds, Right: Clear and Equal Nausea/Vomiting: Denies RUQ Epigastric Pain: Denies Labor Evaluation Frequency: NONE Monitor Mode: External Resting Tone [place]: Relaxed Heart Rate FHR Baseline Rate: 135 Monitor Mode: External US Variability: Moderate 6-25 bpm Accelerations: 15X15 Decelerations: None Pain Assessment Pain Scale: 0 Pain Presence: None/Denies Pain Type: N/A Pain Goal: 3 Membrane Status: Intact Datetime: 05/19/2017 17:29 Stage of : OB Triage Maternal Assessment Level of Consciousness: Fully Conscious DTR's/Clonus: DTRs 1+ Headache: Denies Breath Sounds, Left: Clear and Equal Breath Sounds, Right: Clear and Equal Nausea/Vomiting: Denies RUQ Epigastric Pain: Denies Labor Evaluation Frequency: NONE Monitor Mode: External Resting Tone [place]: Relaxed Heart Rate FHR Baseline Rate: 135 Monitor Mode: External US Variability: Moderate 6-25 bpm Accelerations: 15X15 Decelerations: None Category: Category I Pain Assessment Pain Scale: 0 Pain Presence: None/Denies Pain Type: N/A Pain Goal: 3 Pain Assessment Comments: PT STATES FEELING MUCH BETTER Membrane Status: Intact Datetime: 05/19/2017 16:30 Stage of : OB Triage Maternal Assessment Level of Consciousness: Fully Conscious DTR's/Clonus: DTRs 1+ Headache: Denies Breath Sounds, Left: Clear and Equal Breath Sounds, Right: Clear and Equal Nausea/Vomiting: Denies RUQ Epigastric Pain: Denies Labor Evaluation Frequency: NONE (Annotations: ABD PALPATED SOFT AT TOUCH) Monitor Mode: External Resting Tone [place]: Relaxed Contraction Comments: PT STATES FEELING SOME DISCOMFORT ON AND OFF Heart Rate FHR Baseline Rate: 135 Monitor Mode: External US Variability: Moderate 6-25 bpm Accelerations: 15X15 Decelerations: None Category: Category I Pain Assessment Pain Scale: 0 Pain Presence: None/Denies Pain Type: N/A Pain Goal: 3 Vaginal Exam Dilatation (cms): 1.0 Effacement (%): 40 Station: -3 Exam By: RRAMIREZ,RN Membrane Status: Intact Datetime: 05/19/2017 16:06 Maternal Assessment Level of Consciousness: Fully Conscious DTR's/Clonus: DTRs 1+ Headache: Denies Blurred Vision: No Respiratory Effort: Unlabored Breath Sounds, Left: Clear and Equal Breath Sounds, Right: Clear and Equal Nausea/Vomiting: Denies RUQ Epigastric Pain: Denies Facial Edema: None Labor Evaluation Frequency: NONE Monitor Mode: External Resting Tone [place]: Relaxed Heart Rate FHR Baseline Rate: 135 Monitor Mode: External US Variability: Moderate 6-25 bpm Accelerations: 15X15 Decelerations: None Category: Category I Pain Assessment Pain Scale: 0 Pain Presence: None/Denies Pain Type: N/A Pain Goal: 3 Membrane Status: Intact Datetime: 05/19/2017 15:50 Stage of : OB Triage Maternal Assessment Level of Consciousness: Fully Conscious DTR's/Clonus: DTRs 1+ Headache: Denies Breath Sounds, Left: Clear and Equal Breath Sounds, Right: Clear and Equal Nausea/Vomiting: Denies RUQ Epigastric Pain: Denies Labor Evaluation Frequency: NONE Monitor Mode: External Resting Tone [place]: Relaxed Heart Rate FHR Baseline Rate: 135 Monitor Mode: External US Variability: Moderate 6-25 bpm Accelerations: 15X15 Decelerations: None Category: Category I Pain Assessment Pain Scale: 0 Pain Presence: None/Denies Pain Type: N/A Pain Goal: 3 Membrane Status: Intact Datetime: 05/19/2017 15:29 Stage of : OB Triage Datetime: 05/19/2017 15:16 Time of Arrival: 05/19/2017 15:16 EGA: 36.2 Arrived By: Ambulatory Arrived From: Home Chief Complaint: PT CAME IN C/O CRAMPING SINCE 05/18 @2100 DENIES ANY BLEEDING AT THIS TIME AND STATES + FM. Movement: Present Contractions: Denies/Absent Rupture of Membranes: Denies Vaginal Bleeding: None Vaginal Discharge: Denies Recent Sexual Intercouse: Denies Abdominal Trauma: Not Applicable Patient Complaints: Cramping Additional Patient Complaints: NONE Time Provider Notified: 05/19/2017 15:30 Provider Notified: DANA Initial Plan: MONITOR AND VE BPP Datetime: 03/17/2017 11:49 Labor Evaluation Frequency: 0 Monitor Mode: External Pattern: Normal: <= 5 Contractions in 10 Minutes Resting Tone [place]: Relaxed Heart Rate FHR Baseline Rate: 130 Monitor Mode: External US FHR Baseline Changes: No Baseline Change Variability: Moderate 6-25 bpm Accelerations: 15X15 Decelerations: None Category: Category I Datetime: 03/17/2017 08:04 Maternal Assessment Level of Consciousness: Fully Conscious DTR's/Clonus: DTRs 2+; No Clonus Headache: Denies Breath Sounds, Left: Clear and Equal Breath Sounds, Right: Clear and Equal Nausea/Vomiting: Denies RUQ Epigastric Pain: Denies Temperature Route: Oral Pain Assessment Pain Scale: 0 Pain Presence: None/Denies Datetime: 03/17/2017 07:56 Assessment Type: Ongoing Assessment Blurred Vision: No Respiratory Effort: Unlabored; Regular Rhythm; Equal Expansion Lower Extremities Edema: None Degree: None Upper Extremities Edema: None Degree: None Facial Edema: None Fall Risk Assessment History of Falling: (0) No Secondary Diagnosis: (0) No Ambulatory Aid: (0) Bedrest/Nurse Assist IV Therapy: (0) No Gait: (0) Normal/Bedrest/Immobile Mental Status: (0) Oriented to Own Ability Fall Score: 0 Fall Risk Score Definition: No Risk: No action required Datetime: 03/17/2017 05:53 Temperature Route: Oral Pain Assessment Pain Scale: 0 Datetime: 03/17/2017 02:02 Stage of : Antepartum Temperature Route: Oral Datetime: 03/17/2017 00:20 Temperature Route: Oral Datetime: 03/17/2017 00:00 Labor Evaluation Frequency: 0 Monitor Mode: External Monitor Mode: External US Comments: POOR QUALITY Datetime: 03/16/2017 23:30 Contraction Comments: EFM OFF AT HER REQUEST Datetime: 03/16/2017 23:20 Temperature Route: Oral Datetime: 03/16/2017 23:00 Labor Evaluation Frequency: 0 Monitor Mode: External Heart Rate FHR Baseline Rate: 150 Monitor Mode: External US FHR Baseline Changes: No Baseline Change Variability: Moderate 6-25 bpm Accelerations: 15X15 Decelerations: None Category: Category I Datetime: 03/16/2017 22:10 Temperature Route: Oral Datetime: 03/16/2017 22:00 Labor Evaluation Frequency: 0 Monitor Mode: External Heart Rate FHR Baseline Rate: 140 Monitor Mode: External US FHR Baseline Changes: No Baseline Change Variability: Moderate 6-25 bpm Accelerations: 15X15 Decelerations: None Category: Category I Datetime: 03/16/2017 20:00 Labor Evaluation Frequency: 0 Monitor Mode: External Heart Rate FHR Baseline Rate: 150 Monitor Mode: External US FHR Baseline Changes: No Baseline Change Variability: Moderate 6-25 bpm Accelerations: 15X15 Decelerations: None Category: Category I Datetime: 03/16/2017 19:49 Maternal Assessment Level of Consciousness: Fully Conscious Headache: Denies Blurred Vision: No Respiratory Effort: Unlabored; Regular Rhythm; Equal Expansion Breath Sounds, Left: Clear and Equal Breath Sounds, Right: Clear and Equal Nausea/Vomiting: Denies RUQ Epigastric Pain: Denies Lower Extremities Edema: Left Lower Extremity Upper Extremities Edema: None Facial Edema: None Temperature Route: Oral Fall Risk Assessment History of Falling: (0) No Secondary Diagnosis: (0) No Ambulatory Aid: (0) Bedrest/Nurse Assist IV Therapy: (20) Yes Gait: (0) Normal/Bedrest/Immobile Mental Status: (0) Oriented to Own Ability Fall Score: 20 Fall Risk Score Definition: No Risk: No action required Pain Assessment Pain Scale: 0 Datetime: 03/16/2017 18:23 Pain Presence: None/Denies Datetime: 03/16/2017 18:00 Stage of : Antepartum Maternal Assessment Level of Consciousness: Fully Conscious Headache: Denies Nausea/Vomiting: Denies RUQ Epigastric Pain: Denies Labor Evaluation Frequency: 0/hr Monitor Mode: External Resting Tone [place]: Relaxed Heart Rate FHR Baseline Rate: 145 Monitor Mode: External US Variability: Moderate 6-25 bpm Accelerations: 10X10 Decelerations: None Pain Assessment Pain Scale: 0 Pain Presence: None/Denies Vaginal Bleeding: None Datetime: 03/16/2017 17:25 Comments: maternal h.r. pt. sitting up for dinner Pain Presence: None/Denies Datetime: 03/16/2017 17:00 Stage of : Antepartum Maternal Assessment Level of Consciousness: Fully Conscious Headache: Denies Nausea/Vomiting: Denies RUQ Epigastric Pain: Denies Labor Evaluation Frequency: 0/hr Monitor Mode: External Resting Tone [place]: Relaxed Heart Rate FHR Baseline Rate: 145 Monitor Mode: External US Variability: Moderate 6-25 bpm Accelerations: 10X10 Decelerations: None Pain Assessment Pain Scale: 0 Pain Presence: None/Denies Vaginal Bleeding: None Datetime: 03/16/2017 16:48 Pain Presence: None/Denies Datetime: 03/16/2017 16:17 Monitor Mode: Palpation Resting Tone [place]: Relaxed Pain Presence: None/Denies Datetime: 03/16/2017 16:00 Stage of : Antepartum Maternal Assessment Level of Consciousness: Fully Conscious Headache: Denies Nausea/Vomiting: Denies RUQ Epigastric Pain: Denies Labor Evaluation Frequency: 0/hr Monitor Mode: External Resting Tone [place]: Relaxed Heart Rate FHR Baseline Rate: 150 Monitor Mode: External US Variability: Moderate 6-25 bpm Accelerations: 10X10 Decelerations: None Pain Assessment Pain Scale: 0 Pain Presence: None/Denies Vaginal Bleeding: None Datetime: 03/16/2017 15:31 Pain Presence: None/Denies Pain Assessment Comments: pt. resting at this time Datetime: 03/16/2017 15:02 Heart Rate FHR Baseline Rate: 150 Variability: Moderate 6-25 bpm Accelerations: 15X15 Decelerations: None Datetime: 03/16/2017 15:00 Stage of : Antepartum Maternal Assessment Level of Consciousness: Fully Conscious Headache: Denies Nausea/Vomiting: Denies RUQ Epigastric Pain: Denies Labor Evaluation Frequency: 0/hr Monitor Mode: External Resting Tone [place]: Relaxed Heart Rate FHR Baseline Rate: 150 Monitor Mode: External US Variability: Moderate 6-25 bpm Accelerations: 15X15 Decelerations: None Pain Assessment Pain Scale: 0 Pain Presence: None/Denies Vaginal Bleeding: None Datetime: 03/16/2017 14:57 Monitor Mode: Palpation Resting Tone [place]: Relaxed Datetime: 03/16/2017 14:56 Maternal Assessment Level of Consciousness: Fully Conscious Headache: Denies Nausea/Vomiting: Denies Comments: rn palpates movement Pain Presence: None/Denies Datetime: 03/16/2017 14:00 Stage of : Antepartum Maternal Assessment Level of Consciousness: Fully Conscious Headache: Denies Nausea/Vomiting: Denies RUQ Epigastric Pain: Denies Labor Evaluation Frequency: 0/hr Monitor Mode: External Resting Tone [place]: Relaxed Monitor Mode: External US Pain Assessment Pain Scale: 0 Pain Presence: None/Denies Vaginal Bleeding: None Datetime: 03/16/2017 13:45 Heart Rate FHR Baseline Rate: 145 Monitor Mode: External US Variability: Moderate 6-25 bpm Accelerations: 15X15 Decelerations: None Datetime: 03/16/2017 13:33 Pain Presence: None/Denies Datetime: 03/16/2017 13:00 Stage of : Antepartum Maternal Assessment Level of Consciousness: Fully Conscious Headache: Denies Nausea/Vomiting: Denies RUQ Epigastric Pain: Denies Labor Evaluation Frequency: 0/hr Monitor Mode: External Resting Tone [place]: Relaxed Heart Rate FHR Baseline Rate: 135 Monitor Mode: External US Variability: Moderate 6-25 bpm Accelerations: 15X15 Decelerations: None Pain Assessment Pain Scale: 0 Pain Presence: None/Denies Vaginal Bleeding: None Datetime: 03/16/2017 12:58 Maternal Assessment Level of Consciousness: Fully Conscious Headache: Denies Blurred Vision: No Respiratory Effort: Unlabored Nausea/Vomiting: Denies Comments: pt. sitting up for lunch , denies distress, loss of contact Pain Presence: None/Denies Datetime: 03/16/2017 12:52 Pain Presence: None/Denies Datetime: 03/16/2017 12:45 Heart Rate FHR Baseline Rate: 135 Variability: Moderate 6-25 bpm Accelerations: 15X15 Datetime: 03/16/2017 12:30 Respiratory Effort: Unlabored Pain Assessment Comments: pt. sleeping upon entering room. Datetime: 03/16/2017 12:00 Stage of : Antepartum Maternal Assessment Level of Consciousness: Fully Conscious Headache: Denies Nausea/Vomiting: Denies RUQ Epigastric Pain: Denies Labor Evaluation Frequency: 0/hr Monitor Mode: External Resting Tone [place]: Relaxed Heart Rate FHR Baseline Rate: 135 Monitor Mode: External US Variability: Moderate 6-25 bpm Accelerations: 15X15 Decelerations: None Pain Assessment Pain Scale: 0 Pain Presence: None/Denies Vaginal Bleeding: None Datetime: 03/16/2017 11:38 Maternal Assessment Level of Consciousness: Fully Conscious Headache: Denies Blurred Vision: No Respiratory Effort: Unlabored Nausea/Vomiting: Denies Monitor Mode: Palpation Resting Tone [place]: Relaxed Pain Presence: None/Denies Datetime: 03/16/2017 11:00 Stage of : Antepartum Maternal Assessment Level of Consciousness: Fully Conscious Headache: Denies Nausea/Vomiting: Denies RUQ Epigastric Pain: Denies Labor Evaluation Frequency: 0/hr Monitor Mode: External Resting Tone [place]: Relaxed Contraction Comments: pt. denies uc's Heart Rate FHR Baseline Rate: 140 Monitor Mode: External US Variability: Moderate 6-25 bpm Accelerations: 15X15 Decelerations: None Pain Assessment Pain Scale: 0 Pain Presence: None/Denies Vaginal Bleeding: None Datetime: 03/16/2017 10:42 Heart Rate FHR Baseline Rate: 140 Variability: Minimal - Undetectable to <=5 bpm Decelerations: None Comments: ega 27.1 today/ minimal-moderate variability Pain Presence: None/Denies Datetime: 03/16/2017 10:13 Pain Presence: None/Denies Datetime: 03/16/2017 10:10 Stage of : Antepartum Maternal Assessment Level of Consciousness: Fully Conscious Headache: Denies Nausea/Vomiting: Denies RUQ Epigastric Pain: Denies Temperature Route: Rectal Datetime: 03/16/2017 09:53 Stage of : Antepartum Temperature Route: Rectal Monitor Mode: External Duration (sec)2399: 0/hr Heart Rate FHR Baseline Rate: 145 Monitor Mode: External US Variability: Moderate 6-25 bpm Accelerations: 10X10 Decelerations: None Pain Presence: None/Denies Datetime: 03/16/2017 08:53 Stage of : Antepartum Temperature Route: Rectal Datetime: 03/16/2017 07:58 Decelerations: Variable Comments: pt. coughing at this time Datetime: 03/16/2017 07:54 Heart Rate FHR Baseline Rate: 145 Monitor Mode: External US Variability: Moderate 6-25 bpm Accelerations: 10X10 Datetime: 03/16/2017 07:43 Stage of : Antepartum Assessment Type: Ongoing Assessment Maternal Assessment Level of Consciousness: Fully Conscious DTR's/Clonus: DTRs 2+; No Clonus Headache: Generalized Blurred Vision: No Respiratory Effort: Unlabored; Regular Rhythm; Equal Expansion Respiratory Effort: Unlabored Breath Sounds, Left: Clear and Equal Breath Sounds, Left: Clear and Equal Breath Sounds, Right: Clear and Equal Breath Sounds, Right: Clear and Equal Nausea/Vomiting: Denies Nausea/Vomiting: Denies RUQ Epigastric Pain: Denies RUQ Epigastric Pain: Denies Lower Extremities Edema: None Upper Extremities Edema: None Facial Edema: None Temperature Route: Rectal Fall Risk Assessment History of Falling: (0) No Secondary Diagnosis: (0) No Ambulatory Aid: (0) Bedrest/Nurse Assist IV Therapy: (20) Yes Gait: (0) Normal/Bedrest/Immobile Mental Status: (0) Oriented to Own Ability Fall Score: 20 Fall Risk Score Definition: No Risk: No action required Pain Presence: None/Denies Datetime: 03/16/2017 07:23 Assessment Type: Ongoing Assessment Datetime: 03/16/2017 07:18 Stage of : Antepartum Datetime: 03/16/2017 07:00 Labor Evaluation Frequency: 0 Monitor Mode: External Heart Rate FHR Baseline Rate: 150 Monitor Mode: External US FHR Baseline Changes: No Baseline Change Variability: Minimal - Undetectable to <=5 bpm Accelerations: 10X10 Decelerations: None Category: Category I Datetime: 03/16/2017 06:55 Temperature Route: Rectal (Annotations: RECTAL PROBE FOR COOLING BLANKET) Datetime: 03/16/2017 06:00 Temperature Route: Rectal (Annotations: RECTAL PROBE COOLING BLANKET AUTO SET AT 99.0) Labor Evaluation Frequency: 0 Monitor Mode: External Monitor Mode: External US Comments: POOR QUALITY Datetime: 03/16/2017 05:31 Temperature Route: Rectal (Annotations: PER RECTAL PROBE COOLING BLANKET) Datetime: 03/16/2017 05:00 Labor Evaluation Frequency: 0 Monitor Mode: External Heart Rate FHR Baseline Rate: 150 Monitor Mode: External US FHR Baseline Changes: No Baseline Change Variability: Moderate 6-25 bpm Accelerations: 15X15 Category: Category I Datetime: 03/16/2017 04:50 Temperature Route: Rectal (Annotations: RETCAL PROBE FOR COOLING BLANKET) Datetime: 03/16/2017 04:31 Comments: TO BACK. Datetime: 03/16/2017 04:30 Temperature Route: Oral Pain Assessment Pain Scale: 0 Datetime: 03/16/2017 04:00 Labor Evaluation Frequency: 0 Monitor Mode: External Heart Rate FHR Baseline Rate: 135 Monitor Mode: External US Comments: poor quality sleeping on her right side. Datetime: 03/16/2017 03:35 Temperature Route: Axillary Pain Assessment Pain Scale: 0 Datetime: 03/16/2017 03:00 Labor Evaluation Frequency: 0 Monitor Mode: External Heart Rate FHR Baseline Rate: 135 Monitor Mode: External US FHR Baseline Changes: No Baseline Change Variability: Moderate 6-25 bpm Accelerations: 15X15 Decelerations: None Category: Category I Datetime: 03/16/2017 02:00 Labor Evaluation Frequency: 0 Monitor Mode: External Heart Rate FHR Baseline Rate: 135 Monitor Mode: External US FHR Baseline Changes: No Baseline Change Variability: Moderate 6-25 bpm Accelerations: 15X15 Decelerations: None Category: Category I Datetime: 03/16/2017 01:59 Comments: ZERO ADJUST Datetime: 03/16/2017 01:52 Temperature Route: Rectal (Annotations: PER RECTAL PROBE) Datetime: 03/16/2017 01:00 Labor Evaluation Frequency: 0 Monitor Mode: External Monitor Mode: External US Comments: POOR QUALITY Datetime: 03/15/2017 21:46 EGA: 27.0 Datetime: 03/15/2017 21:40 Fall Score: 20 Fall Risk Score Definition: No Risk: No action required Datetime: 03/15/2017 17:15 Fall Score: 0 Fall Risk Score Definition: No Risk: No action required Datetime: 03/14/2017 15:39 Fall Score: 0 Fall Risk Score Definition: No Risk: No action required Datetime: 03/14/2017 15:38 EGA: 27.0
== END 2017-05-19 17:42 | disposition home or self-care (01) ==
LOC: OBT 15:18 → L-D 15:19 → OBT 17:42
PROVIDERS: ATTEND Obstetrics & Gynecology
DX: O47.1 False labor at or after 37 completed weeks of gestation (principal); Z3A.36 36 weeks gestation of pregnancy
CPT/HCPCS: 76818; Z7500; G0463

== ENCOUNTER 2017-05-30 19:12 | Outpatient (CLI) | payer OTHER ==
[~2017-05-30] VITALS: Ht 167.6 cm; Wt 99.3 kg
[~2017-05-30 19:12] MED LIST changes: -ACET325T33 PO; -GUAI-637 PO
[2017-05-30 21:25] VITALS: BP 113/64; PULSE 102; RESP 18
[2017-05-30 22:36] LABS: ADD UMIC YES; UR ASCORBIC ACID 20 mg/dL (NEGATIVE); UR BILIRUBIN (Dip) NEGATIVE (NEGATIVE); UR BLOOD (Dip) NEGATIVE (NEGATIVE); UR CLARITY SLIGHTLY CLOUDY (CLEAR); UR COLOR YELLOW (YELLOW); UR GLUCOSE (Dip) NEGATIVE (NEGATIVE); UR KETONES (Dip) NEGATIVE (NEGATIVE); UR LEUKOCYTE ESTERASE (Dip) NEGATIVE Leu/ul (NEGATIVE); UR MUCUS MODERATE /HPF (NONE SEEN); UR NITRITE (Dip) NEGATIVE (NEGATIVE); UR RBC 3 /HPF (0-5); UR SPECIFIC GRAVITY (Dip) 1.024 (1.003-1.030); UR SQUAMOUS EPITHELIAL CELL FEW /HPF (FEW); UR TOTAL PROTEIN (Dip) 1+ mg/dl (NEGATIVE); UR UROBILINOGEN (Dip) 2+ mg/dL (NEGATIVE)
--- NOTE | 2017-05-31 03:07 | PN ---
Triage Information Date/Time 05/31/17 0300 Reason for visit: Uterine contractions Weeks of Gestation 37w5d /Para Diabetes: none Hypertention: none Additional information all ended 37wx2 last one at 36weeks Objective Vital Signs Date Time Temp Pulse Resp B/P Pulse Ox O2 Delivery O2 Flow Rate FiO2 05/30/17 21:25 98.1 102 18 113/64 Room Air Heart Rate: 150's Heart Rate Comments reactive Contractions: >10 Minutes Apart Exam 1/60%/-4 watch for 2hrs and walk for 2hrs, reexam no change Results/Medications Results 24 hrs Laboratory Tests Test 05/30/17 20:00 Urine Color YELLOW Urine Clarity SLIGHTLY CLOUDY A Urine pH 6.0 Urine Specific [place] 1.024 Urine Ketones NEGATIVE Urine Nitrite NEGATIVE Urine Bilirubin NEGATIVE Urine Urobilinogen 2+ H Urine Leukocyte Esterase NEGATIVE Urine Microscopic RBC 3 Urine Microscopic WBC 3 Urine Squamous Epithelial Cells FEW Urine Calcium Oxalate Crystals MANY A Urine Mucus MODERATE Urine Hemoglobin NEGATIVE Urine Glucose NEGATIVE Urine Total Protein 1+ H Disposition: Discharge Assessment/Plan A; IUP 37w5d NIL P discharge home with routine labor instructions RTH prn otherwise f/u with her OB SHANNAN CHEN MD May 31, 2017 03:07
--- NOTE | 2017-05-31 03:41 | TRIAGE ---
OB Triage Datetime Report Generated by CPN: 05/31/2017 03:40 Datetime: 05/30/2017 20:00 Time of Arrival: 05/30/2017 19:07 EGA: 37.6 Arrived By: Ambulatory Arrived From: Home Chief Complaint: c/o ucs Movement: Present Contractions: Irregular Patient Complaints: Contractions Time Provider Notified: 05/30/2017 22:05 Provider Notified: Dr Watkins Initial Plan: EFM, SVE Datetime: 05/19/2017 15:16 EGA: 36.2 Datetime: 03/17/2017 07:56 Fall Risk Assessment Fall Score: 0 Fall Risk Score Definition: No Risk: No action required Datetime: 03/16/2017 19:49 Fall Risk Assessment Fall Score: 20 Fall Risk Score Definition: No Risk: No action required Datetime: 03/16/2017 07:43 Fall Risk Assessment Fall Score: 20 Fall Risk Score Definition: No Risk: No action required Datetime: 03/15/2017 21:46 EGA: 27.0 Datetime: 03/15/2017 21:40 Fall Risk Assessment Fall Score: 20 Fall Risk Score Definition: No Risk: No action required Datetime: 03/15/2017 17:15 Fall Risk Assessment Fall Score: 0 Fall Risk Score Definition: No Risk: No action required Datetime: 03/14/2017 15:39 Fall Risk Assessment Fall Score: 0 Fall Risk Score Definition: No Risk: No action required Datetime: 03/14/2017 15:38 EGA: 27.0
== END 2017-05-31 02:06 | disposition home or self-care (01) ==
LOC: OBT 19:12 → L-D 19:14 → OBT 05-31 02:06
PROVIDERS: ATTEND Obstetrics & Gynecology
DX: O62.9 Abnormality of forces of labor, unspecified (principal); Z3A.37 37 weeks gestation of pregnancy
CPT/HCPCS: 81001; G0463

== ENCOUNTER 2017-06-05 17:59 | Outpatient (CLI) | payer OTHER ==
[~2017-06-05] VITALS: Ht 170.2 cm; Wt 99.9 kg
[2017-06-05 18:23] VITALS: Ht 170.2 cm; Wt 99.9 kg
--- NOTE | 2017-06-05 18:55 | PN ---
Triage Information Date/Time June 05, 2017 1850 p.m. Reason for visit: Uterine contractions Weeks of Gestation 38 weeks and 4 days /Para Data 4 para 3 Diabetes: none Hypertention: none Additional information 27-year-old female complaining of onset of uterine contractions after she fell on Saturday Denies rupture of membrane or vaginal bleeding Objective Heart Rate: 140's Heart Rate Comments Reactive Contractions: 6-10 Minutes Apart Exam 40% on 1 cm presenting part vertex at -3 station Results/Medications Imaging Results Physical profile ordered Assessment/Plan Early labor 38+ weeks gestation iF patient changes cervix we will keep for labor and delivery We will have patient walk for 2 hours NOAM HUGHES MD Jun 05, 2017 18:55
--- NOTE | 2017-06-05 19:22 | RADRPT ---
PROCEDURE: US OB biophysical profile. CLINICAL INDICATION: Trauma, evaluate well-being TECHNIQUE: Multiple sonographic images of the pelvis were obtained. The images were reviewed on a PACS workstation. COMPARISON: 05/19/2017 FINDINGS: There is a single viable intrauterine gestation. There is a normal amount of amniotic fluid with an GUSTAVO = 10.5 cm . Cardiac activity is present with 129 beats per minute There is a vertex presentation. The placenta is fundal. Biophysical profile: movement 2/2 tone 2/2. breathing 2/2 GUSTAVO 2/2 Total 05/07 IMPRESSION: 1. Normal biophysical profile of 05/07. 2. Single viable intrauterine gestation in cephalic presentation. 3. Fundal placenta without evidence of previa or abruption. RPTAT:AAJJ Physician Bj Date Time Electronically viewed and signed by Physician Bj on 06/05/2017 19:22 /
--- NOTE | 2017-06-05 22:00 | QN ---
Documentation Comment Laborist f/u: No cervical change after 4 hours. Gave pt the option of walking more and being rechecked in 2 hours or going home with labor precautions. Pt opted to go home so she was discharged. GRISEL COLLIER MD Jun 05, 2017 22:00
--- NOTE | 2017-06-05 22:02 | TRIAGE ---
OB Triage Datetime Report Generated by CPN: 06/05/2017 22:01 Datetime: 06/05/2017 22:00 Stage of : OB Triage Datetime: 06/05/2017 21:30 Labor Evaluation Frequency: 4-7 IRREGULAR Monitor Mode: External Duration (sec)2399: 60-80 Pattern: Normal: <= 5 Contractions in 10 Minutes Contraction Comments: NON LABOR PATTERN Monitor Mode: External US FHR Baseline Changes: No Baseline Change Variability: Moderate 6-25 bpm Accelerations: 15X15 Datetime: 06/05/2017 21:00 Vaginal Exam Dilatation (cms): 2.0 Effacement (%): 70 Station: -2 Exam By: HIGINIO Vaginal Bleeding: None Cervix, Consistency: Moderate Cervix, Position: Posterior Presentation 'A': Cephalic Datetime: 06/05/2017 20:56 Pain Assessment Pain Scale: 8 Pain Presence: Intermittent Pain Type: Contraction Pain Location: Abdomen; Back Pain Assessment Comments: PAIN LEVEL REMAINS AT 8, PT. STATES 'THEY ARE PAINFUL' Datetime: 06/05/2017 19:58 Stage of : OB Triage Datetime: 06/05/2017 19:45 Stage of : OB Triage Assessment Type: Triage Maternal Assessment Level of Consciousness: Fully Conscious Headache: Denies Blurred Vision: No Respiratory Effort: Unlabored; Regular Rhythm; Equal Expansion Nausea/Vomiting: Denies RUQ Epigastric Pain: Denies Facial Edema: None Fall Risk Assessment History of Falling: (0) No Secondary Diagnosis: (0) No Ambulatory Aid: (0) Bedrest/Nurse Assist IV Therapy: (0) No Gait: (0) Normal/Bedrest/Immobile Mental Status: (0) Oriented to Own Ability Fall Score: 0 Fall Risk Score Definition: No Risk: No action required Datetime: 06/05/2017 19:42 Labor Evaluation Frequency: 4-7 Monitor Mode: External Pattern: Normal: <= 5 Contractions in 10 Minutes Contraction Comments: OCCASIONAL UC'S, IRREGULAR PATTERN Heart Rate FHR Baseline Rate: 145 Monitor Mode: External US FHR Baseline Changes: No Baseline Change Variability: Moderate 6-25 bpm Accelerations: 15X15 Category: Category I Datetime: 06/05/2017 19:02 Labor Evaluation Frequency: 5-6 Monitor Mode: External Duration (sec)2399: 50-70 Quality: Mild Pattern: Normal: <= 5 Contractions in 10 Minutes Resting Tone [place]: Relaxed Heart Rate FHR Baseline Rate: 140 Monitor Mode: External US FHR Baseline Changes: No Baseline Change Variability: Moderate 6-25 bpm Accelerations: 15X15 Decelerations: None Category: Category I Pain Assessment Pain Scale: 5 Pain Presence: Intermittent Pain Type: Cramping; Contraction; Ache Pain Location: Abdomen; Back Pain Relief Measures: Comfort Measures Datetime: 06/05/2017 18:51 Vaginal Exam Dilatation (cms): 1.5 Effacement (%): 60 Station: -3 Exam By: DR CORTEZ Datetime: 06/05/2017 18:47 Time of Arrival: 06/05/2017 17:47 EGA: 38.5 Arrived By: Ambulatory Arrived From: Home Chief Complaint: UC'S Movement: Present Contractions: Irregular Rupture of Membranes: Denies Vaginal Bleeding: None Vaginal Discharge: Denies Recent Sexual Intercouse: Denies Abdominal Trauma: Not Applicable Patient Complaints: Contractions Time Provider Notified: 06/05/2017 18:51 Provider Notified: DANA Datetime: 06/05/2017 18:08 Labor Evaluation Frequency: 0 Monitor Mode: External Heart Rate FHR Baseline Rate: 150 Monitor Mode: External US FHR Baseline Changes: No Baseline Change Variability: Moderate 6-25 bpm Accelerations: 15X15 Decelerations: None Category: Category I Pain Assessment Pain Scale: 5 Pain Presence: Intermittent Pain Type: Cramping; Ache Pain Location: Abdomen; Back Pain Relief Measures: Comfort Measures Datetime: 05/31/2017 01:57 Stage of : OB Triage Monitor Mode: External Quality: Mild Pattern: Normal: <= 5 Contractions in 10 Minutes Resting Tone [place]: Relaxed Heart Rate FHR Baseline Rate: 125 Monitor Mode: External US FHR Baseline Changes: No Baseline Change Variability: Moderate 6-25 bpm Accelerations: 15X15 Decelerations: None Category: Category I Datetime: 05/31/2017 01:45 Vaginal Exam Dilatation (cms): 1.0 Effacement (%): 70 Station: -4 Exam By: Vicki Newberry RN Membrane Status: Intact Vaginal Bleeding: None Cervix, Consistency: Moderate Cervix, Position: Posterior Datetime: 05/31/2017 01:34 Stage of : OB Triage Monitor Mode: External Quality: Mild Resting Tone [place]: Relaxed Heart Rate FHR Baseline Rate: 125 Monitor Mode: External US Datetime: 05/31/2017 00:07 Monitor Mode: External Quality: Mild Pattern: Normal: <= 5 Contractions in 10 Minutes Resting Tone [place]: Relaxed Monitor Mode: External US Variability: Moderate 6-25 bpm Accelerations: 15X15 Decelerations: None Category: Category I Datetime: 05/31/2017 00:01 Monitor Mode: External Quality: Mild Pattern: Normal: <= 5 Contractions in 10 Minutes Resting Tone [place]: Relaxed Heart Rate FHR Baseline Rate: 150 Monitor Mode: External US Variability: Moderate 6-25 bpm Accelerations: 15X15 Decelerations: None Category: Category I Datetime: 05/30/2017 23:05 Labor Evaluation Frequency: 5-10 Monitor Mode: External Duration (sec)2399: 60 Quality: Mild Pattern: Normal: <= 5 Contractions in 10 Minutes Resting Tone [place]: Relaxed Heart Rate FHR Baseline Rate: 130 Monitor Mode: External US FHR Baseline Changes: No Baseline Change Variability: Moderate 6-25 bpm Accelerations: 15X15 Decelerations: None Category: Category I Datetime: 05/30/2017 22:00 Stage of : OB Triage Labor Evaluation Frequency: 6-10 Monitor Mode: External Quality: Mild Pattern: Normal: <= 5 Contractions in 10 Minutes Resting Tone [place]: Relaxed Heart Rate FHR Baseline Rate: 130 Monitor Mode: External US FHR Baseline Changes: No Baseline Change Variability: Moderate 6-25 bpm Accelerations: 15X15 Decelerations: None Category: Category I Datetime: 05/30/2017 20:58 Stage of : OB Triage Labor Evaluation Frequency: 10-15 Monitor Mode: External Duration (sec)2399: 40-60 Quality: Mild Pattern: Normal: <= 5 Contractions in 10 Minutes Resting Tone [place]: Relaxed Heart Rate FHR Baseline Rate: 130 Monitor Mode: External US Variability: Moderate 6-25 bpm Accelerations: 15X15 Decelerations: None Category: Category I Datetime: 05/30/2017 20:00 EGA: 37.6 Datetime: 05/30/2017 19:54 Stage of : OB Triage Maternal Assessment Level of Consciousness: Fully Conscious Headache: Denies Blurred Vision: No Nausea/Vomiting: Denies RUQ Epigastric Pain: Denies Facial Edema: None Labor Evaluation Frequency: placed Monitor Mode: External Resting Tone [place]: Relaxed Heart Rate FHR Baseline Rate: 140 Monitor Mode: External US Pain Assessment Pain Scale: 6 Pain Presence: Intermittent Pain Type: Contraction Pain Location: Abdomen Datetime: 05/19/2017 15:16 EGA: 36.2 Datetime: 03/17/2017 07:56 Fall Score: 0 Fall Risk Score Definition: No Risk: No action required Datetime: 03/16/2017 19:49 Fall Score: 20 Fall Risk Score Definition: No Risk: No action required Datetime: 03/16/2017 07:43 Fall Score: 20 Fall Risk Score Definition: No Risk: No action required Datetime: 03/15/2017 21:46 EGA: 27.0 Datetime: 03/15/2017 21:40 Fall Score: 20 Fall Risk Score Definition: No Risk: No action required Datetime: 03/15/2017 17:15 Fall Score: 0 Fall Risk Score Definition: No Risk: No action required Datetime: 03/14/2017 15:39 Fall Score: 0 Fall Risk Score Definition: No Risk: No action required Datetime: 03/14/2017 15:38 EGA: 27.0
== END 2017-06-05 22:00 | disposition home or self-care (01) ==
LOC: L-D 17:59 → OBT 17:59
PROVIDERS: ATTEND Obstetrics & Gynecology
DX: O62.9 Abnormality of forces of labor, unspecified (principal); Z3A.38 38 weeks gestation of pregnancy
CPT/HCPCS: 76818; Z7500; G0463

== ENCOUNTER 2017-06-09 23:10 | Inpatient (IN) | payer OTHER ==
[~2017-06-09] VITALS: Ht 170.2 cm; Wt 99.6 kg
[2017-06-09 23:41] VITALS: Ht 170.2 cm; Wt 99.6 kg
[2017-06-10] VITALS (7 sets, daily range): BP systolic 92–137; BP diastolic 50–88; PULSE 69–108; RESP 16–20
[2017-06-10] MEDS: LACTATED RINGER'S 1,000 ML IV SCH ×3 (00:56→16:56)
[2017-06-10] MEDS ORDERED: OXYTOCIN 30 UNITS/LR 500 ML IV SCH ×2 (01:00)
[2017-06-10] MEDS ORDERED: AMPICILLIN 2 GM/NS (PMX) 100 ML IV ONE (01:00)
[2017-06-10] MEDS ORDERED: METHYLERGONOVINE 0.2 MG INJ IM PRN ×2 (01:00→02:30)
[2017-06-10] MEDS ORDERED: OXYCODONE/ASPIRIN (4.88/325) TAB PO PRN (01:00)
[2017-06-10] MEDS ORDERED: OXYTOCIN 30 UNITS/LR 500 ML IV PRN ×2 (01:00→02:30)
[2017-06-10] MEDS ORDERED: BUTORPHANOL 2 MG INJ IV PRN (01:00)
[2017-06-10] MEDS ORDERED: MISOPROSTOL 200 MCG TAB PR PRN ×2 (01:00→02:30)
[2017-06-10] MEDS ORDERED: CARBOPROST 250 MCG INJ IM PRN ×2 (01:00→02:30)
[2017-06-10] MEDS ORDERED: LACTATED RINGER'S 1,000 ML IV PRN (01:00)
[2017-06-10] MEDS ORDERED: LIDOCAINE 1% (MPF) 30 ML INJ INJ PRN (01:00)
--- NOTE | 2017-06-10 01:53 | HP ---
Date/Time of Note Date/Time of Note DATE: 06/10/17 TIME: 01:50 OB - History Hx of Present Free Text/Dictation 4 para 3 at 39 weeks and 2 days of gestation presents with regular contractions Chief Complaint: Regular contractions : 4 Para: 3 Care: Good Care Past Family/Social History * Past Medical, Surgical, Family and Obstetric Histories reviewed from chart. OB Admission Exam Vital Signs Vital Signs Vital Signs Date Time Temp Pulse Resp B/P Pulse Ox O2 Delivery O2 Flow Rate FiO2 06/10/17 01:36 97.4 108 20 127/73 Room Air Physical Exam HEENT: WNL Heart: Rhythm Normal Lungs: Clear, Equal Abdomen: WNL Extremities: Normal Reflexes: Normal Cervical Dilatation: 5cm Effacement: 75% Station: -2 Membranes: Intact Accelerations: Accelerations Present Decelerations: No Decelerations OB Assessment/Plan Reason for admission: active labor Plan: Expectant Management Other plan: Antibiotics for GBS prophylaxis Copies To: CC: NOAM HUGHES MD, BAHAREH MD Jun 10, 2017 01:53
[2017-06-10 02:04] LABS: WHITE BLOOD COUNT 6.1 10^3/ul (4.8-10.8)
[2017-06-10 02:05] LABS: BASOPHILS % 0.2 % (0.0-2.0); EOSINOPHILS % 0.3 % (0.0-7.0); HEMATOCRIT 35.8 % (37.0-47.0); HEMOGLOBIN 11.9 g/dl (12.0-16.0); LYMPHOCYTES # 1.5 10^3/ul (0.8-2.9); LYMPHOCYTES % 24.8 % (15.0-51.0); MEAN CORPUSCULAR HEMOGLOBIN 28.7 pg (29.0-33.0); MEAN CORPUSCULAR HGB CONC 33.2 g/dl (32.0-37.0); MEAN CORPUSCULAR VOLUME 86.5 fl (82.0-101.0); MEAN PLATELET VOLUME 12.5 fl (7.4-10.4); MONOCYTE # 0.5 10^3/ul (0.3-0.9); NEUTROPHILS % 65.7 % (39.0-77.0); PLATELET COUNT 193 10^3/UL (140-415); RED BLOOD COUNT 4.14 10^6/ul (4.20-5.40); RED CELL DISTRIBUTION WIDTH 14.5 % (11.5-14.5)
--- NOTE | 2017-06-10 02:17 | LDN ---
Date/Time of Note Date/Time of Note DATE: 06/10/17 TIME: 02:15 Delivery Summary Weeks of Gestation 4 para 3 at 39 weeks and 2 days of gestation in active labor Placenta Delivered: Spontaneously Meconium: none Episiotomy: No Anesthesia type: None Estimated blood loss: 150 Sponge & Needle done & correct: Yes All needle counts correct: Yes Any foreign bodies felt in the: No Problems: Infant Delivery Information Sex Infant Sex: male Apgars 1 Minute: 9 5 Minute: 9 Suctioning Nose & mouth suctioned at marv: Yes Umbilical Cord Umbilical cord with: 3 Vessels Cord Blood was obtained: Yes Copies To: CC: NOAM HUGHES MD, BAHAREH MD Jun 10, 2017 02:17
[2017-06-10] MEDS: LACTATED RINGER'S 1,000 ML IV* SCH ×3 (02:18→18:18)
[2017-06-10] MEDS: OXYTOCIN 30 UNITS/LR 500 ML IV SCH ×2 (02:18→07:36)
[2017-06-10] MEDS ORDERED: ONDANSETRON 4 MG INJ IV PRN (02:30)
[2017-06-10] MEDS ORDERED: ACETAMINOPHEN 325 MG TAB PO PRN ×2 (02:30)
[2017-06-10] MEDS ORDERED: DIBUCAINE 1% 30 GM OINT PR PRN (02:30)
[2017-06-10] MEDS ORDERED: WITCH HAZEL/GLYCERIN PAD PR PRN (02:30)
[2017-06-10] MEDS ORDERED: BENZOCAINE 20% 56 ML SPRAY TOP PRN (02:30)
[2017-06-10] MEDS ORDERED: SENNA/DOCUSATE NA (8.6MG/50MG) TAB PO PRN (02:30)
[2017-06-10] MEDS ORDERED: MAGNESIUM HYDROXIDE 30ML CUP PO PRN (02:30)
[2017-06-10] MEDS ORDERED: LANOLIN 7 GM TUBE TOP PRN (02:30)
[2017-06-10] MEDS ORDERED: IBUPROFEN 600 MG TAB PO PRN (02:30)
[2017-06-10 02:31] LABS: INR 0.94; PARTIAL THROMBOPLASTIN TIME 30.8 Sec (25.0-35.0); PROTIME 12.6 Sec (12.2-14.2)
--- NOTE | 2017-06-10 03:14 | TRIAGE ---
OB Triage Datetime Report Generated by CPN: 06/10/2017 03:13 Datetime: 06/10/2017 02:30 Stage of : Recovery Pain Assessment Pain Scale: 7 Pain Presence: Constant Pain Type: Cramping Pain Location: Abdomen; Perineum Pain Goal: 0 Pain Relief Measures: Pain Medication Given Datetime: 06/10/2017 02:08 Labor Evaluation Frequency: 1-4 Monitor Mode: External Duration (sec)2399: 60-120 Quality: Strong Pattern: Normal: <= 5 Contractions in 10 Minutes Resting Tone [place]: Relaxed Heart Rate FHR Baseline Rate: 130 Monitor Mode: External US Variability: Moderate 6-25 bpm Accelerations: 15X15 Decelerations: None Category: Category I Datetime: 06/10/2017 02:04 Vaginal Exam Dilatation (cms): 10.0 Effacement (%): 100 Station: 0 Exam By: dr nair Datetime: 06/10/2017 01:56 Vaginal Exam Dilatation (cms): 8.0 Effacement (%): 80 Station: -1 Exam By: ADDIE RIVERA Membrane Status: Ruptured Membranes Rupture Method: Spontaneous Amniotic Fluid Color: Clear Amniotic Fluid Amount: Moderate Amniotic Fluid Odor: Normal Cervix, Consistency: Soft Cervix, Position: Midposition Presentation 'A': Cephalic Datetime: 06/10/2017 01:44 Vaginal Exam Dilatation (cms): 7.0 Effacement (%): 80 Station: -2 Exam By: ADDIE RIVERA Membrane Status: Intact Cervix, Consistency: Soft Cervix, Position: Midposition Presentation 'A': Cephalic Datetime: 06/10/2017 01:25 Assessment Type: Admission Assessment Vaginal Bleeding: None Maternal Assessment Level of Consciousness: Fully Conscious DTR's/Clonus: DTRs 2+; No Clonus Headache: Denies Blurred Vision: No Respiratory Effort: Unlabored; Regular Rhythm; Equal Expansion Breath Sounds, Left: Clear and Equal Breath Sounds, Right: Clear and Equal Nausea/Vomiting: Denies RUQ Epigastric Pain: Denies Facial Edema: None Fall Risk Assessment History of Falling: (0) No Secondary Diagnosis: (0) No Ambulatory Aid: (0) Bedrest/Nurse Assist Gait: (0) Normal/Bedrest/Immobile Mental Status: (0) Oriented to Own Ability Pain Assessment Pain Scale: 10 Pain Presence: Intermittent Pain Type: Contraction Pain Location: Abdomen Pain Goal: 0 Datetime: 06/10/2017 01:20 Stage of : Labor Time of Arrival: 06/10/2017 01:20 EGA: 39.3 Arrived By: Wheelchair Arrived From: TRIAGE Datetime: 06/10/2017 00:49 Vaginal Exam Dilatation (cms): 4.5 Effacement (%): 70 Station: -2 Exam By: Kunal ALAS Datetime: 06/10/2017 00:21 Stage of : OB Triage Datetime: 06/10/2017 00:10 Stage of : OB Triage Datetime: 06/09/2017 23:37 Stage of : OB Triage Assessment Type: Triage Maternal Assessment Level of Consciousness: Fully Conscious Headache: Denies Blurred Vision: No Respiratory Effort: Unlabored; Regular Rhythm; Equal Expansion Nausea/Vomiting: Denies RUQ Epigastric Pain: Denies Facial Edema: None Fall Risk Assessment History of Falling: (0) No Secondary Diagnosis: (0) No Ambulatory Aid: (0) Bedrest/Nurse Assist IV Therapy: (0) No Gait: (0) Normal/Bedrest/Immobile Mental Status: (0) Oriented to Own Ability Fall Score: 0 Fall Risk Score Definition: No Risk: No action required Datetime: 06/09/2017 23:36 Time of Arrival: 06/09/2017 23:11 EGA: 39.2 Arrived By: Wheelchair Arrived From: Home Chief Complaint: UC'S SINCE 2199 Movement: Present Contractions: Irregular Time Contractions Began: 06/09/2017 22:00 Rupture of Membranes: Denies Vaginal Discharge: Denies Recent Sexual Intercouse: Denies Abdominal Trauma: Not Applicable Time Provider Notified: 06/10/2017 00:10 Provider Notified: DR. NAIR Initial Plan: EFM, SVE, CALL OB Datetime: 06/09/2017 23:31 Vaginal Exam Dilatation (cms): 1.5 Effacement (%): 70 Station: -2 Exam By: GSTRATTON Vaginal Bleeding: Scant Cervix, Consistency: Soft Cervix, Position: Posterior Datetime: 06/09/2017 23:29 Stage of : OB Triage Temperature Route: Oral Datetime: 06/05/2017 19:45 Fall Score: 0 Fall Risk Score Definition: No Risk: No action required Datetime: 06/05/2017 18:47 EGA: 38.5 Datetime: 05/30/2017 20:00 EGA: 37.6 Datetime: 05/19/2017 15:16 EGA: 36.2 Datetime: 03/17/2017 07:56 Fall Score: 0 Fall Risk Score Definition: No Risk: No action required Datetime: 03/16/2017 19:49 Fall Score: 20 Fall Risk Score Definition: No Risk: No action required Datetime: 03/16/2017 07:43 Fall Score: 20 Fall Risk Score Definition: No Risk: No action required Datetime: 03/15/2017 21:46 EGA: 27.0 Datetime: 03/15/2017 21:40 Fall Score: 20 Fall Risk Score Definition: No Risk: No action required Datetime: 03/15/2017 17:15 Fall Score: 0 Fall Risk Score Definition: No Risk: No action required Datetime: 03/14/2017 15:39 Fall Score: 0 Fall Risk Score Definition: No Risk: No action required Datetime: 03/14/2017 15:38 EGA: 27.0 Membranes Ruptured Date/Time: 06/10/2017 01:56
[2017-06-10] MEDS: AMPICILLIN 1 GM/NS (PMX) 50 ML IV SCH ×3 (05:00→13:00)
[2017-06-10] MEDS: IBUPROFEN 600 MG TAB PO PRN ×2 (08:57→17:15)
[2017-06-11] MEDS: LACTATED RINGER'S 1,000 ML IV SCH (00:56)
[2017-06-11] MEDS: LACTATED RINGER'S 1,000 ML IV* SCH (01:28)
[2017-06-11 04:00] VITALS: BP 94/55; PULSE 65; RESP 18
[2017-06-11 08:15] VITALS: BP 102/60; PULSE 62; RESP 18
[2017-06-11 09:58] LABS: BASOPHILS % 0.2 % (0.0-2.0); EOSINOPHILS # 0.1 10^3/ul (0.0-0.5); EOSINOPHILS % 1.5 % (0.0-7.0); HEMATOCRIT 37.1 % (37.0-47.0); HEMOGLOBIN 11.7 g/dl (12.0-16.0); LYMPHOCYTES # 1.5 10^3/ul (0.8-2.9); LYMPHOCYTES % 25.8 % (15.0-51.0); MEAN CORPUSCULAR HEMOGLOBIN 28.3 pg (29.0-33.0); MEAN CORPUSCULAR HGB CONC 31.5 g/dl (32.0-37.0); MEAN CORPUSCULAR VOLUME 89.6 fl (82.0-101.0); MEAN PLATELET VOLUME 12.2 fl (7.4-10.4); MONOCYTE # 0.3 10^3/ul (0.3-0.9); MONOCYTES % 4.6 % (0.0-11.0); PLATELET COUNT 182 10^3/UL (140-415); RED BLOOD COUNT 4.14 10^6/ul (4.20-5.40); RED CELL DISTRIBUTION WIDTH 14.7 % (11.5-14.5); WHITE BLOOD COUNT 5.8 10^3/ul (4.8-10.8)
--- NOTE | 2017-06-11 15:43 | DS ---
Date/Time of Note Date/Time of Note DATE: 06/11/17 TIME: 15:42 Obstetrical Discharge Record Final Diagnosis Final Diagnosis: Term delivered Other Final Diagnosis S/PO vaginal delivery Vaginal Delivery Obstetrical Delivery: Spontaneous Condition on Discharge Physical Assessment Last Vitals: see nurses notes Voiding: Yes Bowel Movement: Yes Breast: Soft, non-tender, Filling Fundus: Firm Abdomen and Incision: Soft bowel sounds present Episiotomy: Not applicable Calf Tenderness: No Patient Condition: Good NAOM HUGHES MD Jun 11, 2017 15:43
[2017-06-11] MEDS ORDERED: IBUP-1542 PO (15:45)
--- NOTE | 2017-06-11 15:45 | PD.PPDC ---
[employer] Discharge Instruction Provider Information Physician Information 26-year-old female had vaginal delivery Condition Patient Condition: Good Diet Diet: Resume Regular Diet Activity/Restrictions Activity: Normal Activity May Shower Restrictions: Nothing in the Vagina Return to Work or School: Jul 29, 2017 Follow-up Follow-up with Physician: 4, Week/Weeks Return to clinic for OB Instructions: Breast Tenderness Depression Comment: Pelvic rest 6 weeks NOAM HUGHES MD Jun 11, 2017 15:45
[2017-06-11 16:00] VITALS: BP 100/65; PULSE 68; RESP 18
[2017-06-11] MEDS: IBUPROFEN 600 MG TAB PO PRN (17:19)
[2017-06-11 20:08] VITALS: BP 99/65; PULSE 74; RESP 19
[2017-06-12 04:30] VITALS: BP 100/58; PULSE 78; RESP 19
[2017-06-12 08:00] VITALS: BP 103/58; PULSE 71; RESP 18
== END 2017-06-12 14:00 | disposition home or self-care (01) | DRG 775 ==
LOC: OBT 23:10 → L-D 23:10 → OBT 06-10 01:00 → PP1 06-10 04:53
PROVIDERS: ADMIT Obstetrics & Gynecology; ATTEND Obstetrics & Gynecology
PROC: 10E0XZZ Delivery of Products of Conception, External Approach (ICD-10-PCS; principal; 2017-06-10)
PROC: 3E033VJ Introduction of Other Hormone into Peripheral Vein, Percutaneous Approach (ICD-10-PCS; 2017-06-10)
DX: O80 Encounter for full-term uncomplicated delivery (principal); Z37.0 Single live birth; Z3A.39 39 weeks gestation of pregnancy
CPT/HCPCS: 36415; 85025; 85610; 85730; 86592; 86850; 86885; 86900; 86901; 87340; G0463; J0290; J2590; J2790; J7120

== ENCOUNTER 2017-11-29 21:22 | Emergency (ER) | END 2017-11-30 00:44 | disposition home or self-care (01) ==

== ENCOUNTER 2018-03-20 20:03 | Emergency (ER) | END 2018-03-21 01:37 | disposition home or self-care (01) ==

== ENCOUNTER 2019-05-27 20:36 | Outpatient (CLI) | payer MEDICAID ==
[~2019-05-27] VITALS: Ht 167.6 cm; Wt 87.4 kg
[~2019-05-27 20:36] MED LIST changes: -CALC600T11 PO; +CALC600T24 PO; +CLOT30CR24 TOP; +CYCL10TA7 PO; +FERR134T PO; -FERR27TA PO; -FOLI0.8C PO; +HYDR-4011 PO; +IBUP-1542 PO; +NAPR-688 PO; +ONDA4TAB11 PO; +PREN-19 PO; -PREN1TAB49 PO; +SULF1TAB31 PO
[2019-05-27 22:51] VITALS: BP 99/55; PULSE 81; RESP 15
[2019-05-28] MEDS ORDERED: ACETAMINOPHEN 500 MG TAB PO STA (00:34)
[2019-05-28] MEDS ORDERED: LACTATED RINGER'S 1,000 ML IV SCH (01:00)
[2019-05-28] MEDS ORDERED: LACTATED RINGER'S 1,000 ML IV ONE (01:00)
== END 2019-05-28 02:34 | disposition home or self-care (01) ==
LOC: OBT 20:36 → L-D 20:37 → OBT 05-28 02:34
PROVIDERS: ATTEND Obstetrics & Gynecology
DX: O26.892 Other specified pregnancy related conditions, second trimester (principal); R10.9 Unspecified abdominal pain; Z3A.34 34 weeks gestation of pregnancy
CPT/HCPCS: 36415; 76815; 76817; 80053; 81001; 84560; 85025; 87086; 96360; G0463; J7120